=== PATIENT | male | born 1985 | race Caucasian/White ===

== ENCOUNTER 2018-10-13 06:14 | Emergency (ER) | payer SELFPAY ==
[2018-10-13 06:16] VITALS: BP 147/89; PULSE 56; RESP 18; TEMP 36.5; O2SAT 99
--- NOTE | 2018-10-13 06:30 | ED.GENADUL_ITS ---
Discharge Plan Disposition Patient Disposition: HOME Condition: Good Discharge Details Chief Complaint: EyeProblem Clinical Impression: Allergic conjunctivitis Primary Care Provider: None,None ED Provider: Ant Allen Meds and New Rx's Prescriptions: New olopatadine [Pataday] 0.2 % drops 1 drp OP DAILY Qty: 2.5 RF: 0 Discharge Instructions Instructions: Conjunctivitis (ED) Additional Instructions: This does not appear to be bacterial pinkeye. This is more likely related to allergic conjunctivitis. Use the eyedrops daily as directed. Follow-up with [facility] next week if not better. Return to ED for eye pain, change in vision, fever, other concerns. Referrals: [facility] [Outside] Medical Decision Making Patient actually has bilateral conjunctival injection. There is no discharge present. Conjunctival sac is injected but clear otherwise. There is no significant chemosis, eyelid swelling, periorbital swelling. Cornea grossly appears normal. I do not think this is bacterial conjunctivitis as there is no discolored discharge present. More likely allergic conjunctivitis given no URI type symptoms otherwise. Will start Pataday eyedrops and refer to [facility] for follow-up next week if not better. Return to ED for eye pain, change in vision, fever. HPI General Mode of arrival: ambulatory . Date/Time Provider Initiated Documentation: 10/13/18 06:20 . Limitations to Documentation: no limitations . Information obtained by: patient . HPI Narrative: Patient presents to ED for evaluation of right eye discomfort and redness. He denies actual pain. He denies change in vision. He has no foreign body sensation. Simply has some irritation and redness that he attributes to just the right eye. He has no other allergy or cold symptoms. Related Data Home Medications Medication Instructions Recorded Confirmed olopatadine [Pataday] 1 drp OP DAILY #2.5 ml 10/13/18 Previous Rx's Medication Instructions Recorded olopatadine [Pataday] 1 drp OP DAILY #2.5 ml 10/13/18 Allergies Allergy/AdvReac Type Severity Reaction Status Date / Time No Known Allergies Allergy Unverified 10/13/18 06:19 General Stated Complaint: EyeProblem TANNER: 4 Review of Systems Constitutional Denies fever(s) Eyes Denies blurry vision, Denies change in vision, Denies eye discharge, Reports irritation, Reports itchy eyes, Denies eye pain and Denies photophobia ENT Denies nasal congestion, Denies nasal discharge, Denies post nasal drip and Denies sore throat Allergic/Immunologic Reports itchy eyes [facility] Social History Smoking/Tobacco Use Status: Never Drug use: Occasionally Do you feel safe at home: Yes Do you feel safe in your relationship?: Yes Exam Const General: cooperative, comfortable and no acute distress Orientation: alert and oriented x3 HENMT Head: normal to inspection, normocephalic and atraumatic Ears: external ears normal General nose exam: external nose normal Face and sinus: normal facial exam Eyes Periorbital: periorbital findings normal Eyelids: eyelids normal Conjunctivae: conjunctival abnormality bilaterally conjunctival injection; without chemosis and without discharge Sclera: sclerae normal Cornea: corneas normal Pupils: PERRL EOM: EOM intact bilaterally Course Vital Signs Temperature 97.7 F 10/13/18 06:16 Pulse 56 L 10/13/18 06:16 Respiratory Rate 18 10/13/18 06:16 Blood Pressure 147/89 H 10/13/18 06:16 Pulse Oximetry 99 10/13/18 06:16 Temperature 97.7 F 10/13/18 06:16 Temperature Source Temporal Artery Scan 10/13/18 06:16 Pulse 56 L 10/13/18 06:16 Respiratory Rate 18 10/13/18 06:16 Respiratory Effort 10/13/18 06:16 Blood Pressure 147/89 H 10/13/18 06:16 Blood Pressure Position Sitting 10/13/18 06:16 Pulse Oximetry 99 10/13/18 06:16 Oxygen Delivery Method Room Air 10/13/18 06:16 Oxygen Flow Rate 0 10/13/18 06:16 Pain Level 0 10/13/18 06:16
== END 2018-10-13 06:38 | disposition home or self-care (01) ==
LOC: ER 06:37
PROVIDERS: Emergency Provider Emergency Medicine
DX: H10.89 Other conjunctivitis (principal)
CPT/HCPCS: 99283

== ENCOUNTER 2019-08-14 08:10 | Emergency (ER) | payer SELFPAY ==
[2019-08-14 08:17] VITALS: BP 142/71; PULSE 82; RESP 17; TEMP 36.9; O2SAT 98
--- NOTE | 2019-08-14 08:27 | W.ED.GENAD ---
Discharge Plan Disposition Patient Disposition: HOME Condition: Stable Discharge Details Chief Complaint: Sorethroat Clinical Impression: Pharyngitis Primary Care Provider: None,None ED Provider: Saud Joseph Home Meds and New Rx's Prescriptions: No Action No Known Home Meds RF: 0 Discharge Instructions Instructions: Pharyngitis (ED) Additional Instructions: Please drink plenty of fluid and allow for plenty of rest. Please take acetaminophen (tylenol) - 650mg every 6 hours by mouth as needed for pain. Please contact your primary care physician to arrange follow-up. Return to the ER for any worsening or new concerning symptoms. Stand Alone Forms: POSITIVE COVID-19/TO BE TESTED, Work Release Medical Decision Making 34-year-old male here with sore throat since yesterday and fever today. Concern for pharyngitis. Rapid strep test negative. Patient is not septic appearing. Consider COVID-19 19 as unclear local epidemiologic spread, patient currently working at [employer], will plan for COVID-19 screening. A medical screening exam was performed. Patient clinically stable. Order for outpatient COVID-19 test was ordered. Usual and customary discharge instructions were provided. Patient was encouraged to drink plenty fluid and allow for plenty of rest. HPI General Mode of arrival: ambulatory. Date/Time Provider Initiated Documentation: 08/14/19 08:27. Limitations to Documentation: no limitations. Information obtained by: patient. HPI Narrative: 34-year-old male presents with chief complaint of sore throat, moderate to severe, started yesterday, no modifiers, associated fever today. No cough or shortness of breath. No travel. No known sick contacts. Patient does work at [employer]. Related Data Home Medications Medication Instructions Recorded Confirmed Unknown [No Known Home Meds] 08/14/19 08/14/19 Allergies Allergy/AdvReac Type Severity Reaction Status Date / Time No Known Allergies Allergy Unverified 10/13/18 06:19 General Stated Complaint: Sorethroat TANNER: 4 Review of Systems Constitutional Constitutional: Reports fever(s) ENT Ears, Nose, Mouth, and Throat: Reports as per HPI Respiratory Respiratory: Reports as per HPI Gastrointestinal Gastrointestinal: Denies nausea and Denies vomiting PFSH Social History Smoking/Tobacco Use Status: Current every day Alcohol Intake: never Drug use: Daily Substance use type: crack/cocaine Do you feel safe at home: Yes Do you feel safe in your relationship?: Yes Exam Const General: cooperative and no acute distress HENMT Mouth: moist mucous membranes Eyes Conjunctivae: normal conjunctivae Sclera: normal sclerae Neck Neck: trachea midline and supple Lymphatic: lymphadenopathy (Mild anterior cervical bilateral) Resp Auscultation: clear to auscultation bilaterally, no rales, no rhonchi and no wheezes Cardio Jugular venous pressure: no JVD Rate: regular rate and not tachycardic Rhythm: regular rhythm Skin General skin exam: no rashes or lesions noted Neuro General: patient alert, patient awake and tone normal Course Vital Signs Vital signs: Vital Signs Temperature 36.9 C 08/14/19 08:17 Pulse 82 08/14/19 08:17 Respiratory Rate 17 08/14/19 08:17 Blood Pressure 142/71 H 08/14/19 08:17 Pulse Oximetry 98 08/14/19 08:17 Temperature 36.9 C 08/14/19 08:17 Temperature Source Tympanic 08/14/19 08:17 Pulse 82 08/14/19 08:17 Respiratory Rate 17 08/14/19 08:17 Respiratory Effort 08/14/19 08:20 Blood Pressure 142/71 H 08/14/19 08:17 Blood Pressure Position Supine 08/14/19 08:17 Pulse Oximetry 98 08/14/19 08:17 Oxygen Delivery Method Room Air 08/14/19 08:17 Oxygen Flow Rate 0 08/14/19 08:17 Pain Level 0 08/14/19 08:17
== END 2019-08-14 08:45 | disposition home or self-care (01) ==
PROVIDERS: Emergency Provider Student in an Organized Health Care Education/Training Program
DX: J02.9 Acute pharyngitis, unspecified (principal); R50.9 Fever, unspecified
CPT/HCPCS: 87880; 99282

== ENCOUNTER 2019-08-20 20:01 | Emergency (ER) | payer SELFPAY ==
[2019-08-20 20:14] VITALS: BP 134/83; PULSE 79; RESP 14; TEMP 37.1; O2SAT 97
--- NOTE | 2019-08-20 20:15 | ED.GENADUL_ITS ---
Discharge Plan Disposition Patient Disposition: HOME Condition: Stable Discharge Details Chief Complaint: Recheck Clinical Impression: Encounter for medical screening examination Primary Care Provider: None,None ED Provider: Yury Frost Home Meds and New Rx's Prescriptions: No Action No Known Home Meds RF: 0 Discharge Instructions Additional Instructions: See enclosed. You will have coronavirus screening performed. Stand Alone Forms: PENDING COVID-19 TESTING, POSITIVE COVID-19/TO BE TESTED, Work Release Medical Decision Making 34-year-old male seen on August 13 for pharyngitis which is since resolved. He did not have any further testing at that time. He was sent home with a workout that noted to COVID 19 testing pending. It was not performed. He is otherwise well. I do feel it is reasonable for him to return to work so long as he has no fever and with precaution of facemask if within close proximity to coworkers. Out of caution, we will obtain an outpatient coronavirus screen tomorrow. Stable for discharge. HPI General Mode of arrival: ambulatory . Date/Time Provider Initiated Documentation: 08/20/19 20:08 . Limitations to Documentation: no limitations . Information obtained by: patient . History of Present Illness 34 year old M presents to the emergency department with the chief complaint of Return to work, no complaint otherwise, status post sore throat, Quality is described as dull and constant, and is localized to the face and mouth. Patient reports no radiation. Patient started experiencing this day(s) and it has been now resolved. No relieving factors improve symptom(s), No exacerbating factors reported . Patient did receive the following treatments prior to arrival, none Related Data Home Medications Medication Instructions Recorded Confirmed Unknown [No Known Home Meds] 08/14/19 08/20/19 Allergies Allergy/AdvReac Type Severity Reaction Status Date / Time No Known Allergies Allergy Unverified 08/20/19 20:19 General TANNER: 4 Review of Systems Narrative: No fever, travel. 4 systems reviewed and otherwise negative, no sore throat PFSH Social History Smoking/Tobacco Use Status: Current every day Alcohol Intake: never Drug use: Daily Substance use type: crack/cocaine Do you feel safe at home: Yes Do you feel safe in your relationship?: Yes Exam Narrative Exam Narrative: GEN: awake, alert, oriented 3. Pleasant, well groomed, interactive. HEAD: Normocephalic, atraumatic ENT: Mucous membranes moist, oropharynx unremarkable, External ear exam unremarkable EYES: PERRL, EOMI NECK: Full ROM, no YAYA, no menigismus CHEST/RESP: Nontender, clear to auscultation bilateral, no wheeze/rhonchi/rales CARDIOVASCULAR: RRR, no murmur, rub brenda. 2+ Rad pulse bilateral EXT: Full ROM, no edema, no rash Neuro: Grossly normal neurologic exam, conversant, interactive. Psych: Speech fluent, thoughts congruent, affect normal
--- NOTE | 2019-08-21 12:00 | CMACTNOTE_ITS ---
- If Service Date Differs Date of service: 08/21/19 Time of Service: 12:00 Care Management Activity Note At the request of ED provider, STACIE coordinates a referral to [facility], tele doc, to assist patient in establishing care with a primary care physician. STACIE also outreaches to Aden by telephone to inquire about health insurance, as he is listed in self-pay status. Aden confirms he is uninsured at this time, so STACIE also coordinates a referral to [facility] ons to enlist their assistance in applying for health insurance.
== END 2019-08-20 20:30 | disposition home or self-care (01) ==
PROVIDERS: Emergency Provider Emergency Medicine
DX: Z71.1 Person with feared health complaint in whom no diagnosis is made (principal); Z02.89 Encounter for other administrative examinations
CPT/HCPCS: 99281

== ENCOUNTER 2019-08-21 09:54 | Outpatient (CLI) | payer SELFPAY ==
[2019-08-23 08:26] LABS: COVID-19 RT-PCR Result Negative
== END 2019-08-21 10:14 ==
PROVIDERS: Visit Provider Student in an Organized Health Care Education/Training Program
DX: Z11.59 Encounter for screening for other viral diseases (principal)
CPT/HCPCS: U0003

== ENCOUNTER 2019-09-03 21:54 | Emergency (ER) | payer MEDICAID, SELFPAY ==
[2019-09-03 22:01] VITALS: BP 130/79; PULSE 61; RESP 16; TEMP 36.6; O2SAT 100
--- NOTE | 2019-09-03 22:09 | W.ED.GENAD ---
Discharge Plan Disposition Patient Disposition: HOME Condition: Stable Discharge Details Chief Complaint: PsychEval Clinical Impression: Substance abuse, Depression Primary Care Provider: None,None ED Provider: Elton Choe Home Meds and New Rx's Prescriptions: No Action No Known Home Meds RF: 0 Discharge Instructions Instructions: Depression (ED), Polysubstance Abuse (ED) Additional Instructions: Please follow-up with [facility] and soccer coach services. Please contact your primary care physician to arrange follow-up. Return to the ER for any worsening or new concerning symptoms. Referrals: [facility] [Provider Group] [facility] [Outside] Discharge Data Discharge Date/Time-TO BE ENTERED AT DEPARTURE: 09/03/19 23:51 Medical Decision Making <ASHU Tapia - Last Filed: 09/04/19 16:08> 34-year-old gentleman presents to the ER today for a medical screening examination. He has not gone to work for the past couple of days, slept in his car, and was reported as a missing person. He was found today, admits to cocaine use on Tuesday, heroin use yesterday. He denies any suicidal or homicidal ideations. His family recently found out about his drug habits and this is strained his relationships. He reports that he is embarrassed, and at times just does not want to deal with anyone. He reports feeling safe. Patient reports that he does not have any insurance so going to a formal detox would be difficult but he is open to outpatient resources. Patient is awake, alert, oriented. He has no acute medical concerns or complaints. He does not appear to be under the influence of any substances. My initial presentation does not lead me to believe that he will require inpatient hospitalization unless additional collateral information is brought to my attention. Given this I have medically cleared the patient and have reached out to both the [facility] hospice consultant staff and a soccer coach. I spoke with on-call [facility] and they plan on having a zoom evaluation. Awaiting soccer coach call Medical Records Medical records reviewed: Yes I reviewed the patient's medical records. <Saud Joseph MD - Last Filed: 09/04/19 00:03> Care signed out by blake Choe. Plan to disposition patient after discussion with [facility] mental health. Patient was seen by mental health crisis screener and will arrange for outpatient services. Multiple calls were made to soccer coach service who was unresponsive. I will request the care management assist with arranging outpatient follow-up with [facility] in addition to [facility] human services. Usual and customary discharge instructions were provided. HPI <ASHU Tapia - Last Filed: 09/04/19 16:08> General Mode of arrival: ambulatory. Date/Time Provider Initiated Documentation: 09/03/19 21:55. Limitations to Documentation: no limitations. Information obtained by: patient. HPI Narrative: This is a 34-year-old gentleman presents to the ER for a medical screening examination. He reports that for the last 2 days he did not go to work, has not talked to friends or family, even slept in his car. He reports that he did not want to speak with anyone and did not want to be bothered. A missing person report was filed, he was found this evening. He reports that he does not feel suicidal or homicidal. He simply did not want to bother with people. He admits to using cocaine fairly regularly, has not used since Tuesday. He smoked heroin for the first time yesterday but denies any drugs or alcohol today. He feels safe, again denies any suicidal or homicidal ideations. He does not believe that he will will need inpatient hospitalization and can safely manage this as an outpatient. He tells me that he is open to speaking with someone regarding his drug habit but is hesitant for a formal inpatient detox. He denies recent illness or trauma. He reports that what brought this on over the past several days is that his family found out in the newspaper that he was in possession of cocaine and that this has been extremely difficult on him and his relationships. He currently has no medical complaints. Denies alcohol use Related Data Home Medications Medication Instructions Recorded Confirmed Unknown [No Known Home Meds] 08/14/19 09/03/19 Allergies Allergy/AdvReac Type Severity Reaction Status Date / Time No Known Allergies Allergy Unverified 09/03/19 22:06 General Stated Complaint: PsychEval TANNER: 2 Review of Systems <ASHU Tapia - Last Filed: 09/04/19 16:08> Constitutional Constitutional: Denies fatigue, Denies fever(s), Denies headache(s) and Denies weakness Eyes Eyes: Denies change in vision ENT Ears, Nose, Mouth, and Throat: Denies headache(s) Cardiovascular Cardiovascular: Denies chest pain and Denies dyspnea Respiratory Respiratory: Denies cough and Denies dyspnea Gastrointestinal Gastrointestinal: Denies abdominal pain, Denies nausea and Denies vomiting Musculoskeletal Musculoskeletal: Denies back pain, Denies numbness and Denies tingling Integumentary/Breasts Skin/Breast: Denies rash Neurologic Neurologic: Denies headache(s), Denies numbness, Denies tingling and Denies weakness Psychiatric Psychiatric: Reports depression, Reports anhedonia, Denies homicidal ideation and Denies suicidal ideation Endocrine Endocrine: Denies fatigue PFSH <ASHU Tapia - Last Filed: 09/04/19 16:08> Medical History Depression (Chronic) Social History Smoking/Tobacco Use Status: Never Alcohol Intake: never Drug use: Daily Substance use type: crack/cocaine and heroin Details: last cocaine use tuesday, heroin used yesterday - had to be narcanned Do you feel safe at home: Yes Do you feel safe in your relationship?: Yes Exam <ASHU Tapia - Last Filed: 09/04/19 16:08> Const General: cooperative, healthy appearing, comfortable, no acute distress and anxious Orientation: alert, awake and oriented x3 HENMT Head: normal to inspection, normocephalic and atraumatic Mouth: moist mucous membranes Throat: posterior oropharynx normal Eyes General: appearance normal, both eyes and all related structures Alignment and Position: alignment normal Periorbital: periorbital findings normal Eyelids: eyelids normal Conjunctivae: conjunctivae normal Sclera: sclerae normal Cornea: corneas normal Pupils: PERRL EOM: EOM intact bilaterally Direct ophthalmoscopy: normal light reflex Neck Neck: normal visual inspection, full ROM, trachea midline and supple Chest Chest: normal palpation of entire chest wall Resp Effort & Inspection: normal respiratory effort and able to speak in complete sentences Auscultation: clear to auscultation bilaterally Cardio Rate: regular rate Rhythm: regular rhythm GI Inspection: normal to inspection Palpation: soft and nontender Back/Spine/Pelvis Back: No back tenderness Skin General skin exam: no rashes or lesions noted Neuro General: patient alert, patient awake, patient oriented x3, moves all extremities and no focal motor deficits Cranial Nerves: CN's II-XI intact bilaterally Cognition: normal cognition Speech: speech normal Gait: normal gait Motor: muscle tone normal throughout Sensory Exam: no sensory deficits noted Extrem General: normal to inspection, full ROM and capillary refill normal Psych Appearance: grossly normal Mental Status: mental status grossly normal Speech and Movement: speech and movement normal Mood: anxious mood and dysthymic mood (Mild) Affect: normal affect Attitude: cooperative Thought Process: normal Thought Content: normal Insight: insight good Judgment: fair Course <ASHU Tapia - Last Filed: 09/04/19 16:08> Vital Signs Vital signs: Vital Signs Temperature 36.6 C 09/03/19 22:01 Pulse 61 09/03/19 22:01 Respiratory Rate 16 09/03/19 22:01 Blood Pressure 130/79 09/03/19 22:01 Pulse Oximetry 100 09/03/19 22:01 Temperature 36.6 C 09/03/19 22:01 Temperature Source Skin 09/03/19 22:01 Pulse 61 09/03/19 22:01 Respiratory Rate 16 09/03/19 22:01 Blood Pressure 130/79 09/03/19 22:01 Pulse Oximetry 100 09/03/19 22:01 Pain Level 0 09/03/19 22:01
--- NOTE | 2019-09-03 23:50 | NUR.NOTE ---
[facility] to [facility] due to not being able to contact them on 09/03/2019Nursing Note:
--- NOTE | 2019-09-04 09:40 | MHPN_ITS ---
Date of service: 09/03/19 Time of Service: 09:45 Mental Health Progress Note Progress Note Progress Note: Presenting Issue: Client arrived at the ED via [facility], seeking substance abuse treatment. Precipitating Factors [place] advised that Olga was a missing person for three days after he didn't show up to work. Olga advised that he didn't go to work because he had been using cocaine and heroin, but that he wants to stop. Client reports that he slept in his car while he was missing. Disposition * Behavior: Client is sitting upright on the hospital bed *Eye Contact: Client unable to provide eye contact, initially. When asked about this, client advised that he is ashamed that he missed work and is in the ER. Client then provided good eye contact. *Mood: Frustrated and depressed *Affect: Blunted *Appetite: Unknown *Sleep(trouble falling/staying asleep): unkown Plan(please elaborate and include that physician is consulted with plan and/or placement): Client will be discharged home. Intake packet with [facility] completed, client will be referred to SA services. Clinician's Name , Title, and Signature Robyn Strickland air conditioning engineer, [facility] Make sure that you are photocopying and submitting this to [facility] records Dept. to be scanned into chart.
--- NOTE | 2019-09-05 12:44 | NUR.NOTE ---
[facility] ice hockey coach Kimmy ray. [facility] will reach out to the patient. Nursing Note:
== END 2019-09-03 23:51 | disposition home or self-care (01) ==
PROVIDERS: Emergency Provider Physician Assistant
DX: F32.89 Other specified depressive episodes (principal); F19.10 Other psychoactive substance abuse, uncomplicated; Z63.8 Other specified problems related to primary support group
CPT/HCPCS: 99283

== ENCOUNTER 2021-08-28 00:41 | Outpatient (CLI) | payer MEDICAID, SELFPAY ==
--- NOTE | 2021-08-28 08:15 | DI.RAD_ITS ---
Exam(s) XR HIP RT COMPLETE AP PELVIS EXAM: XR HIP RT COMPLETE AP PELVIS INDICATION: Continued pain despite PT,oa,m19.90. COMPARISON: No exams were available for comparison TECHNIQUE: 2D digital imaging was performed. Three views. FINDINGS: Hip joint spaces are well maintained. There is mild bilateral acetabular spurring. There abnormal f lattening and lucency of the right superior femoral head, having the appearance of avascular necrosis . The left femoral head has a normal contour. The SI joints and pubic symphysis are unremarkable. 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 DATA REPOSITORY: RADIATION DOSE DELIVERED:
== END 2021-08-28 01:01 ==
PROVIDERS: PCP Nurse Practitioner Family; Visit Provider Nurse Practitioner Family
DX: M25.551 Pain in right hip (principal); M16.11 Unilateral primary osteoarthritis, right hip; M87.051 Idiopathic aseptic necrosis of right femur
CPT/HCPCS: 73502

== ENCOUNTER → 2021-09-17 01:58 | Outpatient (CLI) | payer MEDICAID, SELFPAY ==
--- NOTE | 2021-09-17 14:19 | DI.RAD_ITS ---
Exam(s) RF JOINT INJECTION FLUORO GUID EXAM: RF JOINT INJECTION FLUORO GUID CLINICAL HISTORY: R HIP INJ UNDER FLUORO, RT HIP PAIN, M25.551 TECHNIQUE: 2D and realtime digital imaging was performed. CONTRAST MATERIAL: Water soluble contrast was administered. COMPARISON: No exams were available for comparison FINDINGS: Fluoroscopy was provided for Dr. Rowan during the performance of a right hip injection. Please r efer to the procedure report for complete details. RADIATION DOSE DELIVERED: bobby Cardozo=0.41 mGy
[2021-09-17] MEDS: Bupivacaine 0.5% Pres-Free 30 ML VIAL 5 ML IJ (15:21)
[2021-09-17] MEDS: methylPREDNISolone ACETATE 80 MG/ML VIAL IM (15:23)
--- NOTE | 2021-09-17 17:35 | W.PROCNOTE ---
Date of service: 09/17/21 Time of Service: 14:20 Procedure Note Date of procedure: 09/17/21 Procedure: Right Hip Injection with Fluoroscopic Guidance Surgeon/Proceduralist/Physician: Corey Rowan Procedure Diagnosis: Right Hip Avascular Necrosis Procedure Indications: Aden has had persistent pain of the RIGHT hip and groin. Noninvasive measures have been tried. To serve as both diagnostic and therapeutic, an injection under fluoroscopy was recommended. I had discussed the risks of the procedure and the patient elected to proceed. Procedure Description: Aden was greeted in the flouroscopy room. The correct side was identified and the consent was reviewed with the patient and signed. The patient was then placed in the supine position on the fluoroscopy table. The RIGHT hip was then prepped with Chloraprep. The anterolateral injection starting point was identiifed by bony landmarks and fluoroscopy. The skin and soft tissue in the tract of the injection was anesthetized with 1% Lidocaine. A spinal needle was then inserted deep into the hip joint at the level of the lateral femoral neck under fluoroscopic guidance. Immediately there was a rothman of joint fluid. I was able to remove almost 15cc of normal appearing synovial fluid. With this confirmation of intra-articular placement, I did not use any Omnipaque. Then, the hip was injected with 6cc of 0.5% Bupivicaine and 80mg of Depo-Medrol. A bandaid was placed on the injection site. The patient tolerated the procedure well and noted improvement in pre-injection pain.
== END ==
PROVIDERS: PCP Nurse Practitioner Family; Visit Provider Student in an Organized Health Care Education/Training Program
DX: M25.551 Pain in right hip (principal); M87.051 Idiopathic aseptic necrosis of right femur
CPT/HCPCS: 20610; 77002; J1040

== ENCOUNTER 2021-10-13 18:00 | Emergency (ER) | payer MEDICAID, SELFPAY ==
[2021-10-13] VITALS (11 sets, daily range): BP systolic 135; BP diastolic 71; PULSE 87–102; RESP 14–21; TEMP 36.4; O2SAT 92–98
--- NOTE | 2021-10-13 17:45 | RT.EKG_ITS ---
APPROVED REPORT Exam: Resting ECG Reason for Exam: overdose Patient Location: E HR:93 bpm ECG Measurements Heart Rate 93 AXIS DC 144 P 24 QRSd 93 QRS 0 QT 360 T 38 QTc 447 Conclusion Sinus rhythm...normal P axis, V-rate 60- 99 ST elev, probable normal early repol pattern...ST elevation, age<55. Sinus. Benign early repolarization. No STEMI. I have reviewed and interpreted ECG and agree with software generated interpretation.
--- NOTE | 2021-10-13 18:15 | DI.RAD_ITS ---
Exam(s) XR CHEST 2V PA LATERAL EXAM: XR CHEST 2V PA LATERAL CLINICAL HISTORY: OD. TECHNIQUE: 2D digital imaging was performed. COMPARISON: No exams were available for comparison FINDINGS: 2 views: Heart size is normal. The mediastinum is not widened. Lungs are clear. No infiltrates nor pleural effusions. IMPRESSION: No acute pulmonary findings. DATA REPOSITORY: RADIATION DOSE DELIVERED:
--- NOTE | 2021-10-13 18:36 | W.ED.GENAD ---
Discharge Plan Disposition Patient Disposition: HOME Condition: Improving Discharge Details Chief Complaint: OD/Poison Clinical Impression: Accidental drug overdose Primary Care Provider: Bar Garza ED Provider: Elton Choe Home Meds and New Rx's Prescriptions: No Action No Known Home Meds Discharge Instructions Instructions: Adult Overdose (ED) Additional Instructions: At this time you been observed in the ER for nearly 4 hours, laboratory values do not reveal any obvious emergent process and he reports feeling asymptomatic. I strongly recommend that you stop using illicit drugs, please follow the instructions given to you by the assistant boys track coach. Please contact your primary care provider tomorrow to discuss your ER visit and need for outpatient reevaluation. Please watch for new or worsening symptoms and return to the ER for any concerns Medical Decision Making This is a 36-year-old male presenting to the ER for accidental drug overdose, bystanders gave Narcan x2. Patient admits to smoking crack with fentanyl and special K. He states when he first woke up he felt like his heart was racing but now only complains of nausea and vomiting. He denies any SI or HI. Plan is to obtain medical work-up, give IV fluid, Zofran, and he will talk with the assistant boys track coach. Patient spoke with the assistant boys track coach Initial laboratory values and EKG are unremarkable for obvious emergent process. Patient reports feeling improvement with the Zofran and IV fluid and is at baseline. Given he was given Narcan, reported a chest sensation, he is agreeable to observation in the ER for both his Narcan and a delta troponin Upon reevaluation patient reports that he is asymptomatic and feeling baseline. He will consider outpatient detox but is unsure given some current circumstances. Delta troponin is 52 which is below our cutoff of 60. He denies any chest pain whatsoever. Patient reports that he feels well and is comfortable discharge at this time. He has been observed in the ER for nearly 3 hours and 45 minutes. Standard discharge and return precautions were provided. Patient understands, is agreeable to this plan, and has no additional questions or concerns upon discharge. This documentation was generated using [employer] system, please disregard any oddities of phrase or misspellings. Medical Records Medical records reviewed: Yes I reviewed the patient's medical records. Imaging Data Radiologic Study: Attestation: I personally reviewed and interpreted this imaging study as follows: Imaging: X-Ray Radiologist's impression: PROCEDURE INFORMATION: Exam: XR Chest Exam date and time: 10/13/2021 7:25 PM Age: 36 years old Clinical indication: Other: Od TECHNIQUE: Imaging protocol: XR of the chest. Views: 2 views. COMPARISON: No relevant prior studies available. FINDINGS: Lungs: The lungs are clear. There is no pulmonary vascular congestion. Pleural spaces: There are no pleural effusions present. There is no evidence of pneumothorax. Heart/Mediastinum: The cardiomediastinal silhouette is within normal limits. Diaphragm: There is mild anterior eventration of the right hemidiaphragm. Bones/joints: Unremarkable. IMPRESSION: No active cardiopulmonary disease identified. Lab Data Lab results reviewed: Yes I reviewed the patient's lab results. Labs: Laboratory Tests Range/Units 10/13/21 10/13/21 10/13/21 18:32 18:32 18:32 WBC (4.4-10.8) 10^3/uL 7.65 RBC (4.36-5.78) 10^6/uL 4.91 Hgb (13.5-17.5) g/dL 14.9 Hct (40.0-50.0) % 43.4 MCV (80-95) fL 88 MCH (27.0-33.0) pg 30.3 MCHC (32.0-36.0) % 34.3 RDW (11.8-14.1) % 14.3 H Plt Count (130-400) 10^3/uL 266 MPV (8.0-11.0) fL 10.6 Immature Gran % 0.3 Neutrophils % 85.6 Lymphocytes % 7.3 Monocytes % 6.5 Eosinophils % 0.0 Basophils % 0.3 Nucleated RBC % (0.0-0.3) % 0.0 Absolute Neutrophils (1.2-6.7) 10^3/uL 6.55 Absolute Lymphocytes (1.2-3.4) 10^3/uL 0.56 L Absolute Monocytes (0.1-0.8) 10^3/uL 0.50 Absolute Eosinophils (0.0-0.7) 10^3/uL 0.00 Absolute Basophils (0.0-0.2) 10^3/uL 0.02 Sodium (136-145) mmol/L 139 Potassium (3.5-5.1) mmol/L 3.5 Chloride (98-107) mmol/L 102 Carbon Dioxide (21.0-32.0) mmol/L 25.8 Anion Gap (3-11) mmol/L 11.2 H BUN (7-18) mg/dL 18 Creatinine (0.70-1.30) mg/dL 1.2 Estimated GFR/1.73 m2 (mL/min/1.73m2) >= 60.00 Glucose (74-106) mg/dL 176 H Calcium (8.5-10.1) mg/dL 9.3 Magnesium (1.8-2.4) mg/dL 2.1 Total Bilirubin (0.2-1.0) mg/dL 0.6 AST (15-37) U/L 16 ALT (16-63) U/L 20 Alkaline Phosphatase (46-116) U/L 94 Troponin I (<or=60) ng/L < 50 Total Protein (6.4-8.2) g/dL 7.6 Albumin (3.4-5.0) g/dL 4.2 TSH (0.36-3.74) uIU/mL Urine Color (Yellow) Urine Clarity (Clear) Urine pH (5-8) Ur Specific [place] (1.005-1.025) Urine Protein (Negative) mg/dL Urine Ketones (Negative) mg/dL Urine Blood (Negative) Urine Nitrite (Negative) Urine Bilirubin (Negative) Urine Urobilinogen (Up TO 0.2) EU/dL Ur Leukocyte Esterase (Negative) Urine RBC (0-2) HPF Urine WBC (0-5) HPF Ur Epithelial Cells (Negative) HPF Urine Crystals (Negative) HPF Urine Bacteria (Negative) HPF Urine Casts (Negative) LPF Urine Mucus (Negative) Ur Culture Indicated? Urine Glucose (Negative) mg/dL Salicylates (<2.8) mg/dL < 2.8 Urine Opiates Screen (Negative) Urine Methadone Screen (Negative) Acetaminophen (10-30) ug/mL < 2 Ur Barbiturates Screen (Negative) Ur Tricyclics Screen (Negative) Ur Amphetamines Screen (Negative) U Benzodiazepines Scrn (Negative) Urine Cocaine Screen (Negative) Ur THC Screen (Negative) Ethyl Alcohol (<10) mg/dL < 3.0 Range/Units 10/13/21 10/13/21 10/13/21 18:32 20:00 20:00 WBC (4.4-10.8) 10^3/uL RBC (4.36-5.78) 10^6/uL Hgb (13.5-17.5) g/dL Hct (40.0-50.0) % MCV (80-95) fL MCH (27.0-33.0) pg MCHC (32.0-36.0) % RDW (11.8-14.1) % Plt Count (130-400) 10^3/uL MPV (8.0-11.0) fL Immature Gran % Neutrophils % Lymphocytes % Monocytes % Eosinophils % Basophils % Nucleated RBC % (0.0-0.3) % Absolute Neutrophils (1.2-6.7) 10^3/uL Absolute Lymphocytes (1.2-3.4) 10^3/uL Absolute Monocytes (0.1-0.8) 10^3/uL Absolute Eosinophils (0.0-0.7) 10^3/uL Absolute Basophils (0.0-0.2) 10^3/uL Sodium (136-145) mmol/L Potassium (3.5-5.1) mmol/L Chloride (98-107) mmol/L Carbon Dioxide (21.0-32.0) mmol/L Anion Gap (3-11) mmol/L BUN (7-18) mg/dL Creatinine (0.70-1.30) mg/dL Estimated GFR/1.73 m2 (mL/min/1.73m2) Glucose (74-106) mg/dL Calcium (8.5-10.1) mg/dL Magnesium (1.8-2.4) mg/dL Total Bilirubin (0.2-1.0) mg/dL AST (15-37) U/L ALT (16-63) U/L Alkaline Phosphatase (46-116) U/L Troponin I (<or=60) ng/L Total Protein (6.4-8.2) g/dL Albumin (3.4-5.0) g/dL TSH (0.36-3.74) uIU/mL 1.74 Urine Color (Yellow) Yellow Urine Clarity (Clear) Clear Urine pH (5-8) 5.5 Ur Specific [place] (1.005-1.025) >= 1.030 H Urine Protein (Negative) mg/dL 100 H Urine Ketones (Negative) mg/dL Negative Urine Blood (Negative) Small H Urine Nitrite (Negative) Negative Urine Bilirubin (Negative) Negative Urine Urobilinogen (Up TO 0.2) EU/dL 0.2 Ur Leukocyte Esterase (Negative) Negative Urine RBC (0-2) HPF 5-10 H Urine WBC (0-5) HPF 0-2 Ur Epithelial Cells (Negative) HPF Negative Urine Crystals (Negative) HPF Negative Urine Bacteria (Negative) HPF Negative Urine Casts (Negative) LPF 0-2 Coarse Granular Urine Mucus (Negative) Heavy Ur Culture Indicated? No Urine Glucose (Negative) mg/dL Negative Salicylates (<2.8) mg/dL Urine Opiates Screen (Negative) Negative Urine Methadone Screen (Negative) Negative Acetaminophen (10-30) ug/mL Ur Barbiturates Screen (Negative) Negative Ur Tricyclics Screen (Negative) Negative Ur Amphetamines Screen (Negative) Negative U Benzodiazepines Scrn (Negative) Negative Urine Cocaine Screen (Negative) Positive A Ur THC Screen (Negative) Positive A Ethyl Alcohol (<10) mg/dL Range/Units 10/13/21 21:11 WBC (4.4-10.8) 10^3/uL RBC (4.36-5.78) 10^6/uL Hgb (13.5-17.5) g/dL Hct (40.0-50.0) % MCV (80-95) fL MCH (27.0-33.0) pg MCHC (32.0-36.0) % RDW (11.8-14.1) % Plt Count (130-400) 10^3/uL MPV (8.0-11.0) fL Immature Gran % Neutrophils % Lymphocytes % Monocytes % Eosinophils % Basophils % Nucleated RBC % (0.0-0.3) % Absolute Neutrophils (1.2-6.7) 10^3/uL Absolute Lymphocytes (1.2-3.4) 10^3/uL Absolute Monocytes (0.1-0.8) 10^3/uL Absolute Eosinophils (0.0-0.7) 10^3/uL Absolute Basophils (0.0-0.2) 10^3/uL Sodium (136-145) mmol/L Potassium (3.5-5.1) mmol/L Chloride (98-107) mmol/L Carbon Dioxide (21.0-32.0) mmol/L Anion Gap (3-11) mmol/L BUN (7-18) mg/dL Creatinine (0.70-1.30) mg/dL Estimated GFR/1.73 m2 (mL/min/1.73m2) Glucose (74-106) mg/dL Calcium (8.5-10.1) mg/dL Magnesium (1.8-2.4) mg/dL Total Bilirubin (0.2-1.0) mg/dL AST (15-37) U/L ALT (16-63) U/L Alkaline Phosphatase (46-116) U/L Troponin I (<or=60) ng/L 52 Total Protein (6.4-8.2) g/dL Albumin (3.4-5.0) g/dL TSH (0.36-3.74) uIU/mL Urine Color (Yellow) Urine Clarity (Clear) Urine pH (5-8) Ur Specific [place] (1.005-1.025) Urine Protein (Negative) mg/dL Urine Ketones (Negative) mg/dL Urine Blood (Negative) Urine Nitrite (Negative) Urine Bilirubin (Negative) Urine Urobilinogen (Up TO 0.2) EU/dL Ur Leukocyte Esterase (Negative) Urine RBC (0-2) HPF Urine WBC (0-5) HPF Ur Epithelial Cells (Negative) HPF Urine Crystals (Negative) HPF Urine Bacteria (Negative) HPF Urine Casts (Negative) LPF Urine Mucus (Negative) Ur Culture Indicated? Urine Glucose (Negative) mg/dL Salicylates (<2.8) mg/dL Urine Opiates Screen (Negative) Urine Methadone Screen (Negative) Acetaminophen (10-30) ug/mL Ur Barbiturates Screen (Negative) Ur Tricyclics Screen (Negative) Ur Amphetamines Screen (Negative) U Benzodiazepines Scrn (Negative) Urine Cocaine Screen (Negative) Ur THC Screen (Negative) Ethyl Alcohol (<10) mg/dL ECG Data Attestation: I personally reviewed and interpreted this ECG (s) as follows: Interpretation: Please see official report by Dr. Damian. Sinus rhythm. ST elevation likely early repolarization. No STEMI. No previous EKG to compare HPI General Mode of arrival: EMS. Date/Time Provider Initiated Documentation: 10/13/21 18:01. Limitations to Documentation: no limitations. Information obtained by: patient and EMS. HPI Narrative: This is a 36-year-old gentleman, past medical history that includes polysubstance abuse, depression, avascular necrosis of the right hip, presenting to the ER for accidental overdose, became either near or completely unresponsive, bystanders called EMS and gave him Narcan x2. By the time EMS arrived patient was awake. Patient reports that his drug of choice typically smoking crack but today smoked his typical crack with fentanyl and special K. Patient reports that this was not an attempt to harm himself and was purely accidental. Patient states that when he first awoke and felt like his heart was going fast but currently states that that went away completely, denies any chest pain or shortness of breath. His only complaint at this time is nausea and vomiting. Denies recent illness or trauma. Denies any IV drug use. Denies fever, headache, abdominal pain, numbness, tingling, weakness. Patient states that he has had to be medicated with Narcan in the past. Patient is open to speaking with the assistant boys track coach at this time. Related Data Home Medications Medication Instructions Recorded Confirmed Unknown [No Known Home Meds] 07/31/21 10/13/21 Allergies Allergy/AdvReac Type Severity Reaction Status Date / Time No Known Allergies Allergy Verified 10/13/21 18:11 General Stated Complaint: OD/Poison TANNER: 2 Review of Systems Constitutional Constitutional: Denies fever(s), Denies headache(s) and Denies weakness Eyes Eyes: Denies change in vision ENT Ears, Nose, Mouth, and Throat: Denies headache(s) and Denies neck pain Cardiovascular Cardiovascular: Denies chest pain and Denies dyspnea Respiratory Respiratory: Denies cough and Denies dyspnea Gastrointestinal Gastrointestinal: Denies abdominal pain, Reports nausea and Reports vomiting Musculoskeletal Musculoskeletal: Denies back pain, Denies neck pain, Denies numbness and Denies tingling Integumentary/Breasts Skin/Breast: Denies rash Neurologic Neurologic: Denies headache(s), Denies numbness, Denies tingling and Denies weakness Psychiatric Psychiatric: Denies homicidal ideation and Denies suicidal ideation Hematologic/Lymphatic Hematologic/Lymphatic: Denies easy bleeding and Denies easy bruising PFSH All Active Problems (Updated 10/13/21 @ 21:50 by ASHU Tapia) Accidental drug overdose (Acute) Avascular necrosis of bone of right hip (Acute) Leg pain (Acute) 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 Brother No problems noted. Maternal Grandfather No problems noted. Paternal Grandfather Heart disease COPD (chronic obstructive pulmonary disease) Maternal Grandmother High cholesterol Paternal Grandmother Cancer Social History Smoking/Tobacco Use Status: Never Second Hand Exposure: No Smoking risk assessment performed?: Yes Alcohol Intake: never Drug use: Current Sobriety Substance use type: crack/cocaine and heroin Details: last cocaine use tuesday, heroin used yesterday - had to be narcanned Household members: family Do you need help understanding health information?: Rarely Pets and animals: No Sexually active: Yes Do you think of yourself as: straight/heterosexual Current gender identity: male What is your relationship status?: never How often do you talk on the phone with friends or family?: three or more times per week How often do you get together with friends or relatives?: three or more times per week Panel score (0-1 are the most socially isolated patients): 1 What type of physical activity do you participate in: walking Duration: 60-90 minutes/day Frequency: daily Do you feel safe at home: Yes Do you feel safe in your relationship?: Yes Exam Const General: cooperative, healthy appearing, comfortable, no acute distress and anxious Orientation: alert, awake and oriented x3 HENMT Head: normal to inspection, normocephalic and atraumatic Face and sinus: normal facial exam Mouth: moist mucous membranes Throat: posterior oropharynx normal Eyes General: appearance normal, both eyes and all related structures Conjunctivae: conjunctivae normal Neck Neck: normal visual inspection, full ROM, no meningeal signs, trachea midline, supple and nontender Resp Effort & Inspection: normal respiratory effort and able to speak in complete sentences Auscultation: clear to auscultation bilaterally Cardio Rate: regular rate Rhythm: regular rhythm GI Palpation: soft and nontender Back/Spine/Pelvis Back: No back tenderness Skin General skin exam: no rashes or lesions noted Neuro General: patient alert, patient awake, moves all extremities and no focal motor deficits Cognition: normal cognition Speech: speech normal Motor: muscle tone normal throughout Sensory Exam: no sensory deficits noted Extrem General: normal to inspection, full ROM and capillary refill normal Psych Appearance: grossly normal Mental Status: mental status grossly normal Course Vital Signs Vital signs: Vital Signs Temperature 36.4 C L 10/13/21 17:57 Pulse 102 H 10/13/21 17:57 Respiratory Rate 19 10/13/21 17:57 Blood Pressure 135/71 10/13/21 17:57 Pulse Oximetry 97 10/13/21 17:57 Temperature 36.4 C L 10/13/21 17:57 Temperature Source Tympanic 10/13/21 17:57 Pulse 102 H 10/13/21 17:57 Respiratory Rate 16 10/13/21 18:17 Respiratory Effort Non-Labored 10/13/21 18:17 Respiratory Depth Normal 10/13/21 18:17 Respiratory Pattern Normal 10/13/21 18:17 Blood Pressure 135/71 10/13/21 17:57 Blood Pressure Position Sitting 10/13/21 17:57 Pulse Oximetry 97 10/13/21 17:57 Oxygen Delivery Method Room Air 10/13/21 17:57 Oxygen Flow Rate 0 10/13/21 17:57 Pain Level 3 10/13/21 17:57
[2021-10-13] MEDS: Ondansetron 4 MG/2 ML VIAL (18:44)
[2021-10-13] MEDS: Normal Saline 1,000 ML 1000 ML IV (18:44)
[2021-10-13 19:00] LABS: Abs Immature Grans 0.02 10^3/uL (0.0-0.06); Absolute Basophil Count 0.02 10^3/uL (0.0-0.2); Absolute Lymphocyte Count 0.56 10^3/uL (1.2-3.4); Absolute Neutrophil Count 6.55 10^3/uL (1.2-6.7); Basophils % 0.3; HCT 43.4 % (40.0-50.0); HGB 14.9 g/dL (13.5-17.5); Immature Grans % 0.3; Lymphocytes % 7.3; MCH 30.3 pg (27.0-33.0); MCHC 34.3 % (32.0-36.0); MCV 88 fL (80-95); MPV 10.6 fL (8.0-11.0); Monocytes % 6.5; Neutrophils % 85.6; Platelet Count 266 10^3/uL (130-400); RBC 4.91 10^6/uL (4.36-5.78); RDW 14.3 % (11.8-14.1); RDW-SD 46.1 fL; WBC 7.65 10^3/uL (4.4-10.8)
[2021-10-13 19:24] LABS: Salicylate < 2.8 mg/dL (<2.8)
[2021-10-13 19:25] LABS: Acetaminophen < 2 ug/mL (10-30)
[2021-10-13 19:29] LABS: ALT 20 U/L (16-63); AST 16 U/L (15-37); Albumin 4.2 g/dL (3.4-5.0); Alkaline Phosphatase 94 U/L (46-116); Anion Gap 11.2 mmol/L (3-11); BUN 18 mg/dL (7-18); Bilirubin, Total 0.6 mg/dL (0.2-1.0); CO2 25.8 mmol/L (21.0-32.0); CREATININE 1.2 mg/dL (0.70-1.30); Calcium 9.3 mg/dL (8.5-10.1); Chloride 102 mmol/L (98-107); Glucose 176 mg/dL (74-106); Magnesium 2.1 mg/dL (1.8-2.4); Potassium 3.5 mmol/L (3.5-5.1); Sodium 139 mmol/L (136-145); Total Protein 7.6 g/dL (6.4-8.2); Troponin I < 50 ng/L (<or=60)
[2021-10-13 19:32] LABS: ETHANOL BLOOD < 3.0 mg/dL (<10)
[2021-10-13 19:37] LABS: TSH (W/Ref FT4) 1.74 uIU/mL (0.36-3.74)
--- NOTE | 2021-10-13 19:57 | DI.VRAD_ITS ---
PROCEDURE INFORMATION: Exam: XR Chest Exam date and time: 10/13/2021 7:25 PM Age: 36 years old Clinical indication: Other: Od TECHNIQUE: Imaging protocol: XR of the chest. Views: 2 views. COMPARISON: No relevant prior studies available. FINDINGS: Lungs: The lungs are clear. There is no pulmonary vascular congestion. Pleural spaces: There are no pleural effusions present. There is no evidence of pneumothorax. Heart/Mediastinum: The cardiomediastinal silhouette is within normal limits. Diaphragm: There is mild anterior eventration of the right hemidiaphragm. Bones/joints: Unremarkable. IMPRESSION: No active cardiopulmonary disease identified. Dictated and Authenticated by: Milton Perez MD. Ordering:AWA Conde MD
[2021-10-13 20:22] LABS: Bilirubin Negative (Negative); Blood Small (Negative); Clarity Clear (Clear); Glucose Negative (Negative); Ketones Negative (Negative); Leukocyte Esterase Negative (Negative); Nitrite Negative (Negative); Specific Gravity >= 1.030 (1.005-1.025); Urobilinogen 0.2 EU/dL (Up TO 0.2); pH 5.5 (5-8)
[2021-10-13 20:29] LABS: Bacteria Negative HPF (Negative); Crystals Negative HPF (Negative); Epithelial Cells Negative HPF (Negative); WBC 0-2 HPF (0-5)
[2021-10-13 20:30] LABS: C & S Indicated? No; Casts 0-2 Coarse Granular LPF (Negative); Mucus Heavy (Negative)
[2021-10-13 20:32] LABS: *AMPHETAMINES SCREEN URINE Negative (Negative); *BARBITURATES SCREEN URINE Negative (Negative); *BENZODIAZEPINES SCREEN URINE Negative (Negative); Cannabinoids THC Positive (Negative); Cocaine Screen,Urine Positive (Negative); METHADONE URINE SCREEN Negative (Negative); OPIATES URINE SCREEN Negative (Negative)
[2021-10-13 20:33] LABS: Tricyclic Antidepressants Negative (Negative)
[2021-10-13 21:40] LABS: Troponin I 52 ng/L (<or=60)
== END 2021-10-13 22:10 | disposition home or self-care (01) ==
PROVIDERS: Emergency Provider Physician Assistant; PCP Nurse Practitioner Family
DX: T40.411A Poisoning by fentanyl or fentanyl analogs, accidental (unintentional), initial encounter (principal); T41.291A Poisoning by other general anesthetics, accidental (unintentional), initial encounter; R00.2 Palpitations
CPT/HCPCS: 36415; 80053; 80307; 93005; 96361; 96374; 99284; 71046; 80320; 80329; 81003; 81015; 83735; 84443; 84484; 85025; 93010; J2405

== ENCOUNTER 2022-02-24 21:38 | Outpatient (REF) | payer MEDICAID, SELFPAY ==
[2022-02-26 16:03] LABS: Chlamydia Result Negative (Negative); GC Result Negative (Negative)
== END 2022-02-24 21:39 | disposition home or self-care (01) ==
LOC: LBN 21:38
PROVIDERS: PCP Nurse Practitioner Family; Visit Provider Family Medicine
DX: Z20.2 Contact with and (suspected) exposure to infections with a predominantly sexual mode of transmission (principal)
CPT/HCPCS: 87491; 87591

== ENCOUNTER 2022-05-28 01:01 | Outpatient (CLI) | payer MEDICAID, SELFPAY ==
[2022-05-28 12:31] LABS: Hemoglobin A1C 5.4 % (<5.7)
[2022-05-28 12:58] LABS: Calculated LDL 102 mg/dL (<100); Cholesterol 183 mg/dL (<200); HDL Cholesterol 74 mg/dL (40-60); Triglyceride 37 mg/dL (<150)
[2022-05-29 09:26] LABS: HIV-1/2 Ag & Ab Screen Negative (Negative)
== END 2022-05-28 01:02 | disposition home or self-care (01) ==
LOC: LOS 01:02
PROVIDERS: Family Medicine; PCP Nurse Practitioner Family; Visit Provider Nurse Practitioner Family
DX: E78.5 Hyperlipidemia, unspecified (principal); R73.9 Hyperglycemia, unspecified; Z11.4 Encounter for screening for human immunodeficiency virus [HIV]; Z00.00 Encounter for general adult medical examination without abnormal findings
CPT/HCPCS: 36415; 80061; 87389; 83036

== ENCOUNTER 2022-06-21 15:27 | Outpatient (CLI) | payer MEDICAID, SELFPAY ==
--- NOTE | 2022-06-21 15:15 | DI.RAD_ITS ---
Exam(s) XR HIP RT AP LAT ONLY EXAM: XR HIP RT AP LAT ONLY CLINICAL HISTORY: Rigt hip f/u. TECHNIQUE: 2D digital imaging was performed. Two views COMPARISON: CR XR HIP RT COMPLETE AP PELVIS from 08/28/2021 FINDINGS: There has been further collapse with further flattening of the superior aspect of the right femoral h ead. There is worsening of spurring at the lateral right hip joint. DATA REPOSITORY: RADIATION DOSE DELIVERED:
== END 2022-06-21 15:28 | disposition home or self-care (01) ==
LOC: DIORS 15:28
PROVIDERS: PCP Nurse Practitioner Family; Referring Provider Nurse Practitioner Family; Visit Provider Student in an Organized Health Care Education/Training Program
DX: M87.051 Idiopathic aseptic necrosis of right femur (principal)
CPT/HCPCS: 73502

== ENCOUNTER 2022-07-08 13:50 | Emergency (ER) | payer MEDICAID, SELFPAY ==
[2022-07-08 14:08] VITALS: PULSE 63; RESP 18; TEMP 36.6; O2SAT 98
[2022-07-08 14:11] VITALS: BP 140/93
--- NOTE | 2022-07-08 15:02 | ED.GENADUL_ITS ---
Discharge Plan Disposition Condition: Stable Discharge Details Chief Complaint: PsychEval Clinical Impression: Depression Primary Care Provider: Bar Garza ED Provider: Chris Vasquez Home Meds and New Rx's Prescriptions: No Action sertraline [Zoloft] 50 mg tablet 50 mg PO DAILY Medical Decision Making 37 yo male with hx of substance abuse and depression comes in with thoughts of self harm. He states he has chronic depression but the past few weeks has worsened over the past few weeks. He states he has been using crack and heroin, last used heroin a week ago and last used crack this morning, denies alcohol use. HAsn't attempted to harm himself. He is caox4, clear speech and clinically sober. Normal gait, no focal motor or sensation deficits. No findings on exam to suggest underlying medical or infectious etiology for his symptoms. Will obtain screening labs and consult mental health labs unremarkable, seen by mental health and will be voluntary for depression/si Differential Diagnosis Differential Diagnosis: depression, si, substance abuse Lab Data Lab results reviewed: Yes I reviewed the patient's lab results. HPI General Mode of arrival: ambulatory . Date/Time Provider Initiated Documentation: 07/08/22 14:50 . Limitations to Documentation: no limitations . Information obtained by: patient . History of Present Illness 37 year old M presents to the emergency department with the chief complaint of depression/si, described as moderate, Patient started experiencing this week(s) (3) and it has been constant. No relieving factors improve symptom(s), No exacerbating factors reported . Patient did receive the following treatments prior to arrival, none Related Data Home Medications Medication Instructions Recorded Confirmed sertraline 50 mg tablet (Zoloft) 50 mg PO DAILY 02/24/22 07/08/22 Allergies Allergy/AdvReac Type Severity Reaction Status Date / Time No Known Allergies Allergy Verified 07/08/22 14:12 General Stated Complaint: PsychEval TANNER: 2 Review of Systems All systems reviewed & are unremarkable except as noted in HPI and below Constitutional Constitutional: Denies chills, Denies fever(s) and Denies weakness Eyes Eyes: Denies loss of vision ENT Ears, Nose, Mouth, and Throat: Denies change in voice Cardiovascular Cardiovascular: Denies chest pain and Denies dyspnea Respiratory Respiratory: Denies cough and Denies dyspnea Gastrointestinal Gastrointestinal: Denies abdominal pain, Denies nausea and Denies vomiting Genitourinary Genitourinary: Denies dysuria Musculoskeletal Musculoskeletal: Denies joint swelling Integumentary/Breasts Skin/Breast: Denies rash Neurologic Neurologic: Denies loss of vision and Denies weakness PFSH All Active Problems (Updated 07/08/22 @ 18:22 by Chris Vasquez MD) Depression (Chronic) Avascular necrosis of bone of right hip (Acute) Leg pain (Acute) 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 Brother No problems noted. Maternal Grandfather No problems noted. Paternal Grandfather Heart disease COPD (chronic obstructive pulmonary disease) Maternal Grandmother High cholesterol Paternal Grandmother Cancer Social History Smoking/Tobacco Use Status: Current-Occasional Tobacco Type: cigarettes Second Hand Exposure: Yes Smoking risk assessment performed?: Yes Alcohol Intake: current Drug use: Daily Substance use type: marijuana, crack/cocaine and heroin Household members: family Do you need help understanding health information?: Rarely Pets and animals: No Sexually active: No Do you think of yourself as: straight/heterosexual Current gender identity: male What is your relationship status?: refused to answer How often do you talk on the phone with friends or family?: once per week How often do you get together with friends or relatives?: never How often do you attend scientologist or mormon services?: decline to answer Panel score (0-1 are the most socially isolated patients): 0 What type of physical activity do you participate in: walking Duration: 60-90 minutes/day Frequency: 1-2 times per week Seatbelt use: always Do you feel safe at home: Yes Do you feel safe in your relationship?: Yes Exam Const General: no acute distress Orientation: alert HENMT Head: normal to inspection Ears: external ears normal General nose exam: external nose normal Mouth: moist mucous membranes Eyes General: appearance normal, both eyes and all related structures Neck Neck: normal visual inspection Resp Effort & Inspection: normal respiratory effort and able to speak in complete sentences Cardio Rate: regular rate Skin General skin exam: no rashes or lesions noted Neuro General: patient alert and patient oriented x3 Cranial Nerves: PERRL Extrem General: normal to inspection Psych Attitude: cooperative Course Vital Signs Vital signs: Vital Signs Temperature 36.6 C 07/08/22 14:08 Pulse 63 07/08/22 14:08 Respiratory Rate 18 07/08/22 14:08 Pulse Oximetry 98 07/08/22 14:08 Temperature 36.6 C 07/08/22 14:08 Temperature Source Tympanic 07/08/22 14:08 Pulse 63 07/08/22 14:08 Respiratory Rate 18 07/08/22 14:08 Respiratory Effort Normal, Non-Labored 07/08/22 14:10 Blood Pressure 140/93 H 07/08/22 14:11 Pulse Oximetry 98 07/08/22 14:08 Oxygen Delivery Method Room Air 07/08/22 14:08 Oxygen Flow Rate 0 07/08/22 14:08
--- NOTE | 2022-07-08 15:15 | NUR.NOTE ---
Nursing Note: Pt presents to ED w/ c/o SI. Pt states he lost his mother as well as friend recently and has ongoing substance use of crack and heroin. Pt denies HI. Admits to plan of jumping off bridge to harm himself and states he had climbed up onto the railing of bridge yesterday, but didnt act on it. A&O. resp even and unlabored.
[2022-07-08 15:37] LABS: Abs Immature Grans 0.01 10^3/uL (0.0-0.06); Absolute Basophil Count 0.04 10^3/uL (0.0-0.2); Absolute Eosinophil Count 0.04 10^3/uL (0.0-0.7); Absolute Lymphocyte Count 1.03 10^3/uL (1.2-3.4); Absolute Monocyte Count 0.42 10^3/uL (0.1-0.8); Absolute Neutrophil Count 3.23 10^3/uL (1.2-6.7); Basophils % 0.8; Eosinophils % 0.8; HGB 14.3 g/dL (13.5-17.5); Immature Grans % 0.2; Lymphocytes % 21.6; MCH 30.6 pg (27.0-33.0); MCHC 33.3 % (32.0-36.0); MCV 92 fL (80-95); MPV 9.4 fL (8.0-11.0); Monocytes % 8.8; Neutrophils % 67.8; Platelet Count 216 10^3/uL (130-400); RBC 4.68 10^6/uL (4.36-5.78); RDW 14.2 % (11.8-14.1); RDW-SD 47.7 fL; WBC 4.77 10^3/uL (4.4-10.8)
[2022-07-08 15:57] LABS: Salicylate < 2.8 mg/dL (<2.8)
--- NOTE | 2022-07-08 15:57 | PDOC.CMSAFED ---
- If Service Date Differs Date of service: 07/08/22 Time of Service: 15:57 Care Management Safety Plan Status: Interim - Reason for Wait Reason for Wait: Assessment/Screening Chief Complaint: Aden is a 37 year old male with a history of depression and substance use. He presents in the ED today for worsening suicidal ideation over the past few weeks. He reports last use of heroin a week ago and crack cocaine this morning. Records indicate he was inpatient at [facility] in August of 2020. CM will respond to ED to assess patient after patient has been medically cleared and assessed by screener. If screener deems patient meets criteria for psychiatric stabilization CM will facilitate interdepartmental huddle with [facility] screener for safety planning considerations and meet with patient to review [facility] policy and safety plan, establish individual wishes for treatment and maintain patient rights. In the interim; please note safety plan below to guide patient care while awaiting further assessment in the ED. SAFETY PLAN: 1. Will remain on suicide precautions and in paper clothes. 2. Will remain in room under direct supervision of one-on-one staff at all times provided by CPSO, EMR IMPLEMENTATION SPECIALIST, CLAIMS ASSISTANT residency coordinator. 3. May have paper cups, plates, finger foods as well as a cardboard spoon with which to eat meals. 4. Follow [facility] Management of the Admitted Behavioral Health Patient policy. 5. Personal care: Comfort bath system only at this time. 6. Bathroom privileges: with escort in ED. Available in room without limitation on Med/Surg. 6. No personal belongings at this time; per RN discretion. 7. No visitors at this time. 8. Phone contact limited to legal/family contact via cordless hospital phone at this time. 9. Activities: Music tablet and other activities at RN discretion. Med/Surg: Television available at RN discretion. 10. Due to VOLUNTARY status, if patient wishes to leave [facility], staff will contact [facility] Crisis Screener ([phone]) and On-Call Supervisor Taping ([phone]) as soon as possible. In the event of elopement, notify [facility] Police ([phone]). If deemed appropriate for inpatient psychiatric care, safety plan will be established with patient, and care team, to adhere to patient goals, identify restrictions based on behavioral status, address nutrition, and determine allowed personal belongings, tools for hygiene and personal care. As well plan will determine level of activity including ambulation, level of supervision, visitors, and determine privileges based on level of acuity, behaviors and level of engagement by patient.
[2022-07-08 16:03] LABS: Acetaminophen < 2 ug/mL (10-30)
[2022-07-08 16:06] LABS: ALT 14 U/L (16-63); AST 13 U/L (15-37); Alkaline Phosphatase 92 U/L (46-116); Anion Gap 7.9 mmol/L (3-11); BUN 13 mg/dL (7-18); Bilirubin, Total 0.6 mg/dL (0.2-1.0); CO2 31.1 mmol/L (21.0-32.0); CREATININE 1.2 mg/dL (0.70-1.30); Calcium 9.5 mg/dL (8.5-10.1); Chloride 102 mmol/L (98-107); Estimated GFR 78.89 (mL/min/1.73m2); Glucose 90 mg/dL (74-106); Sodium 141 mmol/L (136-145); TSH (W/Ref FT4) 1.08 uIU/mL (0.36-3.74); Total Protein 7.6 g/dL (6.4-8.2)
[2022-07-08 18:05] LABS: ETHANOL BLOOD < 3.0 mg/dL (<10)
[2022-07-08 18:17] LABS: Bilirubin Small (Negative); Blood Small (Negative); Clarity Clear (Clear); Glucose Negative (Negative); Ketones Trace mg/dL (Negative); Leukocyte Esterase Negative (Negative); Nitrite Negative (Negative); Specific Gravity >= 1.030 (1.005-1.025)
[2022-07-08 18:23] LABS: Bacteria Few HPF (Negative); C & S Indicated? No; Casts Negative LPF (Negative); Crystals Negative HPF (Negative); Epithelial Cells Few HPF (Negative); Mucus Moderate (Negative); WBC Negative HPF (0-5)
[2022-07-08 18:27] LABS: *AMPHETAMINES SCREEN URINE Negative (Negative); *BARBITURATES SCREEN URINE Negative (Negative); *BENZODIAZEPINES SCREEN URINE Negative (Negative); Cannabinoids THC Negative (Negative); Cocaine Screen,Urine Positive (Negative); METHADONE URINE SCREEN Negative (Negative); OPIATES URINE SCREEN Negative (Negative)
[2022-07-08 18:32] LABS: Tricyclic Antidepressants Negative (Negative)
--- NOTE | 2022-07-08 22:05 | NUR.NOTE ---
Nursing Note: Report given to Samara DEMARCO
--- NOTE | 2022-07-08 23:44 | PDOC.MHCN_ITS ---
Date of service: 07/08/22 Time of Service: 17:10 PHQ-9 Over the last 2 weeks, how often have you been bothered by any of the following problems? 1. Little interest or pleasure in doing things: nearly every day 2. Feeling down, depressed, or hopeless: nearly every day 3. Trouble falling or staying asleep, or sleeping too much: more than half the days 4. Feeling tired or having little energy: more than half the days 5. Poor appetite or overeating: nearly every day 6. Feeling bad about yourself - or that you are a failure or have let yourself and your family down: nearly every day 7. Trouble concentrating on things, such as reading the newspaper or watching television: more than half the days 8. Moving or speaking so slowly that other people could have noticed? - Or the opposite - being so fidgety or restless that you have been moving around a lot more than usual: more than half the days 9. Thoughts that you would be better off or of hurting yourself in some way: nearly every day Total score: 23 If you checked off any problems, how difficult have these problems made it for you to do your work, take care of things at home, or get along with other people?: extremely difficult Source: Developed by Drs. Ant Pena, Kim Jeter, Carlos Capps and colleagues, with an educational sylvie from [employer]. Suicide Severity Rate CSSRS Have you wished you were or wished you could go to sleep and not wake up?: Yes Have you actually had any thoughts of killing yourself?: Yes CSSRS2 Have you been thinking about how you might do this?: Yes Have you had these thoughts and had some intention of acting on them?: Yes Have you started to work out or worked out the details of how to kill yourself? Do you intend to carry out this plan?: Yes CSSRS3 Have you ever done anything, started to do anything or prepared to do anything to end your life?: Yes CSSRS4 Was this within the past three months?: Yes Screening Score Total Score: 8 Screening: Positive Mental Health Emergency Note Release [facility] release signed:: Yes Reason for Visit Client is known to [facility] as per chart review was brought to [facility] ED last Spring on a MH warrant. When client was brought to [facility] ED he was hospitalized on a voluntary basis at [facility]. Client did not follow through with outpatient treatment when he was released from [facility]. Client presented to [facility] ED this afternoon with chief complaint of worsening depression/anxiety, increased suicidal ideations with intent and plan, and significant substance abuse. Client is seen at [facility] ED in person. In the last 2 weeks has the pt presented for ES prior to today?: No Client Information Client is: Adult Outpatient Well Housed: No,status: Homeless Non Suicidal Self Injury Current: No History: yes, Client has hx of NSSI Safety Risk/Harm to Self or Others Current Ideation to Harm Self or Others: Yes to self. (Client endorsing persisitent SI with intent 01/09 and plan to overdose on illicit drugs or jump [place] from the [address]. ) Intent: yes, has intent. Plan: yes,has a plan. Risk: Does risk to harm exist?: yes. Access to means: No. Risk: High Risk Duty to warn indicated: No Asssessment/Mental Status Appearance: Unremarkable Attitude: Cooperative Behavior: Unremarkable Speech: Soft Affect: Flat and Cogruent with mood Mood: Stressed, Depressed and Anxious Thought process: Unremarkable Hallucinations: No Delusions: No Attention: Unremarkable Perception: Not impaired Orientation: Fully orientated Memory: Intact Insight: Fair Judgement: Fair Neurovegetative Symptoms Sleep: Decrease Appetitie: Disordered Interests: Decrease Energy: Decrease Libido: Not applicable Substance Use: Drug Issues: Dependence (Crack cocaine) Do you use nicotine?: No Have you used substances in the last 7 days?: yes, Crack cocaine- unkown amount. Additional Issues: Assaultive/Threatening Behavior: No Medical Concerns: No Client engaged in active self harm w/weapon: No Threatening to run away: No Child reported abuse/neglect: No Voluntarily presenting for services: Yes Domestic violence is a concern: No Extreme Psychosis or extreme behavior is present: No Impression Client is a 37 y/o single caucasion male that is currently homeless and staying on friends couches. Client is currently unemployed per his report he has not worked in about 2 months since he DUI drugs charge. Client presents with symptoms most congruent with major depressive disorder, as evidenced by self- report, poor appetite and sleep, increased suicidal ideations, loss of interest and poor energy. Client reports to this fiction and nonfiction writer prose that last night he was standing on the [address] in [place], [place] with intent to jump off from the bridge and by suicide. Client is unable to identify to this fiction and nonfiction writer prose what stopped him from jumping. Client reports to this fiction and nonfiction writer prose that he is currently endorsing persistent SI with high intent and same plan to jump off from the [address] or intentionally overdose on illicit drugs to by suicide. Client is showing fair insight and judgment and recognizes at this time he needs a higher level of care. Client would benefit from inpatient treatment in a co-occuring bed to decrease suicidal ideations, address substance abuse, and learn coping skills that he can utilize. Client would also benefit from a step down substance abuse program after hospitalization such as [facility] or [facility], to which he is open to. Alternatives to hospitalization were discussed, however this fiction and nonfiction writer prose feels like at this time client needs a higher level of care. Plan/Disposition Recommended Disposition: Hospitalization No. Plan: Client will remain at [facility] ED on voluntary status pending admission to an inpatient facility. Should client want to leave [facility] should be notified and an EE would be pursued. Clients referrals will be faxed to [facility], [facility], [facility], and [facility]. Client will be re-assessed by [facility] daily until placement is secured or clients acuity level decreases and he is able to be safety planned back to the community. Person reported agreement to plan: Yes Facilities contacted if Applicable [facility] Not accepted, No bed available [facility] Not accepted, Only accepting in house referrals [facility] Not accepted, Only accepting in house referrals, [facility] Not accepted, No bed available Reports/communication Outcome discussed with: ED/Personnel (Verbal passover given to ED provider Dr. Vasquez) Final Disposition/Discharge Transportation Checklist completed and faxed: No
[2022-07-09] MEDS: Sertraline 50 MG TAB PO ×2 (01:00→21:49)
--- NOTE | 2022-07-09 09:54 | MHPN_ITS ---
Date of service: 07/09/22 Time of Service: 09:54 PHQ-9 Over the last 2 weeks, how often have you been bothered by any of the following problems? 1. Little interest or pleasure in doing things: nearly every day 2. Feeling down, depressed, or hopeless: nearly every day 3. Trouble falling or staying asleep, or sleeping too much: more than half the days 4. Feeling tired or having little energy: more than half the days 5. Poor appetite or overeating: nearly every day 6. Feeling bad about yourself - or that you are a failure or have let yourself and your family down: nearly every day 7. Trouble concentrating on things, such as reading the newspaper or watching television: more than half the days 8. Moving or speaking so slowly that other people could have noticed? - Or the opposite - being so fidgety or restless that you have been moving around a lot more than usual: more than half the days 9. Thoughts that you would be better off or of hurting yourself in some way: nearly every day Total score: 23 If you checked off any problems, how difficult have these problems made it for you to do your work, take care of things at home, or get along with other people?: extremely difficult Source: Developed by Drs. Ant Pena, Kim Jeter, Carlos Capps and colleagues, with an educational sylvie from [employer] Suicide Severity Rate CSSRS Have you wished you were or wished you could go to sleep and not wake up?: Yes Have you actually had any thoughts of killing yourself?: Yes CSSRS2 Have you been thinking about how you might do this?: Yes Have you had these thoughts and had some intention of acting on them?: Yes Have you started to work out or worked out the details of how to kill yourself? Do you intend to carry out this plan?: Yes CSSRS3 Have you ever done anything, started to do anything or prepared to do anything to end your life?: Yes CSSRS4 Was this within the past three months?: Yes Screening Score Total Score: 8 Screening: Positive Mental Health Emergency Note Release [facility] release signed:: Yes Reason for Visit Client is known to [facility] as per chart review was brought to [facility] ED last Spring on a MH warrant. When client was brought to [facility] ED he was hospitalized on a voluntary basis at [facility]. Client did not follow through with outpatient treatment when he was released from [facility]. Client presented to [facility] ED this afternoon with chief complaint of worsening depression/anxiety, increased suicidal ideations with intent and plan, and significant substance abuse. Client is seen at [facility] ED in person. In the last 2 weeks has the pt presented for ES prior to today?: Unknown Client Information Client is: Adult Outpatient Non Suicidal Self Injury Current: No History: No Safety Risk/Harm to Self or Others Current Ideation to Harm Self or Others: Yes to self. Intent: yes, has intent. Plan: yes,has a plan. History of suicide attempt: yes,history of suicide attempt reported. Details of previous suicide attempt: Client endorsed a history of over dose, suffocation, a couple days ago the client was sitting on the railings of the [place] [employer] [place] contemplating jumping. Risk: Does risk to harm exist?: yes. Access to means: Yes. Types of Means: Other. Counseling provided: Yes Risk: High Risk Duty to warn indicated: No Asssessment/Mental Status Appearance: Unremarkable Attitude: Cooperative and Friendly Behavior: Unremarkable Speech: Normal Affect: Flat Mood: Depressed Thought process: Goal directed Hallucinations: No Delusions: No Attention: Unremarkable Perception: Not impaired Orientation: Fully orientated Memory: Intact Insight: Good Judgement: Fair Neurovegetative Symptoms Sleep: Increase Appetitie: Decrease Interests: Decrease Energy: Decrease Libido: Not applicable Substance Use: Drug Issues: Dependence Do you use nicotine?: No Have you used substances in the last 7 days?: yes, Client reports that he uses Cocaine daily and on occasion uses heroin. When asked how much he uses he self reports that he uses about a gram of cocaine a week. Additional Issues: Assaultive/Threatening Behavior: No Medical Concerns: No Client engaged in active self harm w/weapon: No Threatening to run away: No Child reported abuse/neglect: No Voluntarily presenting for services: Yes Domestic violence is a concern: No Extreme Psychosis or extreme behavior is present: No Impression Client is a 37 year old, single, male who lives in [facility]. He is unemployed and has no natural supports per his report. Client presents laying in bed resting and reports that he got a decent amount of sleep last night for the first time in awhile. He is engaged and communicates his needs appropriately. He reported to ED staff that his substance abuse issues are pushing him to the point of acting on his SI. He has a reported history of attempts including an aborted one just a day or two ago when he was sitting on the railings of the [address] contemplating jumping. He self-reports his risk if he were to be discharged a 910 still with the same plans. Client continues to describe and show signs of a MDD diagnosis and would benefit from a psychiatric hospitalization. Plan/Disposition Recommended Disposition: Hospitalization facilities contacted. Plan: Client will remain at [facility] ED on voluntary status pending admission to an inpatient facility. Should client want to leave [facility] should be notified and an EE should be considered. Clients referrals have been faxed to [facility], [facility], [facility], and [facility]. Client will be re-assessed by [facility] daily until placement is secured or clients acuity level decreases and he is able to be safety planned back to the community. Person reported agreement to plan: Yes Facilities contacted if Applicable [facility] Not accepted, No bed available [facility] Not accepted, No bed available [facility] (send referral for review ) Other Reports/communication Outcome discussed with: ED/Personnel
--- NOTE | 2022-07-09 10:25 | PDOC.CMSAFED ---
- If Service Date Differs Date of service: 07/09/22 Time of Service: 10:25 Care Management Safety Plan Status: Voluntary - Reason for Wait Reason for Wait: Inpatient Admission VOLUNTARY FOR INPATIENT PSYCHIATRIC STABILIZATION. Patient is appropriate in all interactions since arriving at [facility]; Pt has demonstrated appropriate coping and communication skills, has articulated his needs and concerns and is fully engaged during staff interactions. Safety plan has been established with patient, and care team, to adhere to patient goals, identify restrictions based on behavioral status, address nutrition, and determine allowed personal belongings, tools for hygiene and personal care. Determine level of activity including ambulation, level of supervision, visitors, and determine privileges based on behaviors and level of engagement by pt. SAFETY PLAN: 1. Will remain on suicide precautions. In Paper Clothes 2. Will remain in room under direct supervision of one-on-one staff at all times provided by CPSO; PRIYANKA, PERENNIAL HOUSE MANAGER pin ticket machine operator. 3. May have paper cups, plates, finger foods as well as a cardboard spoon with which to eat meals. 4. Follow [facility] Management of the Admitted Behavioral Health Patient policy. 5. Comfort bath system only, shower permitted with escort at RN discretion. 6. No personal belongings-soft items permitted at RN discretion. 7. Visitors-none at this time. 8. Activities: soft cart items approved per RN discretion. 9. Bathroom privileges with escort in the ED, available in room without limitation on M/S. 10. Phone: contact limited to family at this time, via cordless phone at RN discretion. 11. Due to VOLUNTARY status, if patient wishes to leave [facility], staff will contact [facility] Crisis Screener ([phone]) and On-Call Garage Supervisor ([phone]) as soon as possible. In the event of elopement, notify [place] [employer] Police ([phone]). Patient is currently voluntarily at [facility] and seeking inpatient admission when a bed becomes available. [facility] Frontline E D Tech will continue seeking placement. Please contact the Flavoring Oil Filterer Garage Supervisor ([phone]) and [facility] E D Tech ([phone]) for any needed changes in the Safety Plan. Safety plan has been provided to interdepartmental care team.
--- NOTE | 2022-07-09 16:11 | W.EDPROG ---
Date of service: 07/09/22 Time of Service: 16:11 Medical Decision Making Care was signed out by Dr. Meza, please see his documentation regarding earlier ED course. Plan at signout was to await psychiatric treatment facility placement patient here voluntarily for SI and substance abuse. Patient stable this shift. Cooperative. Still awaiting placement. Sign Out Sign Out Data: Sign Out Comment: voluntary for depression/si Last updated by Chris Vasquez MD at 07/08/22 20:22 Sign Out Comment: Stable throughout the night, voluntary for depression and suicidal ideation, no interventions needed. Last updated by Mio Meza DO at 07/09/22 08:03 Discharge Plan Disposition Condition: Stable Discharge Details Chief Complaint: PsychEval Clinical Impression: Depression Primary Care Provider: Bar Garza ED Provider: Saud Joseph Home Meds and New Rx's Prescriptions: No Action sertraline [Zoloft] 50 mg tablet 50 mg PO DAILY
--- NOTE | 2022-07-09 17:39 | W.EDPROG ---
Date of service: 07/09/22 Time of Service: 17:39 Medical Decision Making patient remains voluntary for depression/si, no issues reported during the day, will continue to remain in the ED until bed placement found Sign Out Sign Out Data: Sign Out Comment: voluntary for depression/si Last updated by Chris Vasquez MD at 07/08/22 20:22 Sign Out Comment: Stable throughout the night, voluntary for depression and suicidal ideation, no interventions needed. Last updated by Mio Meza DO at 07/09/22 08:03 Sign Out Comment: Awaiting psychiatric placement. Stable. Last updated by Saud Joseph MD at 07/09/22 16:37 Discharge Plan Disposition Condition: Stable Discharge Details Chief Complaint: PsychEval Clinical Impression: Depression Primary Care Provider: Bar Garza ED Provider: Chris Vasquez Home Meds and New Rx's Prescriptions: No Action sertraline [Zoloft] 50 mg tablet 50 mg PO DAILY
[2022-07-09 22:26] VITALS: BP 122/70; PULSE 52; RESP 20; TEMP 36.8; O2SAT 94
[2022-07-10 05:51] LABS: Source Nasal/Nares
[2022-07-10 06:21] LABS: COVID-19 PCR Negative (Negative)
--- NOTE | 2022-07-10 08:03 | CMSP_ITS ---
- If Service Date Differs Date of service: 07/07/22 Time of Service: 11:00 Care Management Safety Plan Status: Voluntary - Reason for Wait Reason for Wait: Inpatient Admission VOLUNTARY FOR INPATIENT PSYCHIATRIC STABILIZATION. Per [facility] Crisis Screener: Client is a 37 year old, single, male who lives in [facility]. He is unemployed and has no natural supports per his report. Client presents laying in bed resting and reports that he got a decent amount of sleep last night for the first time in awhile. He is engaged and communicates his needs appropriately. He reported to ED staff that his subst ance abuse issues are pushing him to the point of acting on his SI. He has a reported history of attempts including an aborted one just a day or two ago when he was sitting on the railings of the [facility] [place] contemplating jumping. He self-reports his risk if he were to be discharged a 01/09 still with the same plans. Client continues to describe and show signs of a MDD diagnosis and would benefit from a psychiatric hospitalization. Patient is appropriate in all interactions since arriving at [facility]; Pt has demonstrated appropriate coping and communication skills, has articulated his needs and concerns and is fully engaged during staff interactions. Safety plan has been established with patient, and care team, to adhere to patient goals, identify restrictions based on behavioral status, address nutrition, and determine allowed personal belongings, tools for hygiene and personal care. Determine level of activity including ambulation, level of supervision, visitors, and determine privileges based on behaviors and level of engagement by pt. SAFETY PLAN: 1. Will remain on suicide precautions. In Paper Clothes 2. Will remain in room under direct supervision of one-on-one staff at all times provided by [employer]; PRIYANKA, CERTIFICATION OFFICER underwriter solicitation director. 3. May have paper cups, plates, finger foods as well as a cardboard spoon with which to eat meals. 4. Follow [facility] Management of the Admitted Behavioral Health Patient policy. 5. Comfort bath system only, shower permitted with escort at RN discretion. 6. No personal belongings-soft items permitted at RN discretion. 7. Visitors-none at this time. 8. Activities: soft cart items approved per RN discretion. 9. Bathroom privileges with escort in the ED, available in room without limitation on M/S. 10. Phone: contact limited to family at this time, via cordless phone at RN discretion. 11. Due to VOLUNTARY status, if patient wishes to leave [facility], staff will contact [facility] Crisis Screener ([phone]) and On-Call Lead Generator ([phone]) as soon as possible. In the event of elopement, notify [facility] Police ([phone]). Patient is currently voluntarily at [facility] and seeking inpatient admission when a bed becomes available. [facility] Frontline Expressive Art Therapist will continue seeking placement. Please contact the [employer] Lead Generator ([phone]) and [facility] Expressive Art Therapist ([phone]) for any needed changes in the Safety Plan. Safety plan has been provided to interdepartmental care team.
[2022-07-10 08:31] VITALS: BP 123/71; PULSE 65; RESP 17; TEMP 36.7; O2SAT 94
--- NOTE | 2022-07-10 11:37 | NUR.NOTE ---
Nursing Note: patient transfered to facility via EMS. Report given by previous RN. Belongings provided back to patient for transfer.
== END 2022-07-10 11:40 ==
PROVIDERS: Emergency Medicine; Student in an Organized Health Care Education/Training Program; Emergency Provider Emergency Medicine; PCP Nurse Practitioner Family
DX: F32.A Depression, unspecified (principal); R45.851 Suicidal ideations; Z20.822 Contact with and (suspected) exposure to COVID-19
CPT/HCPCS: 80053; 80307; 87635; 99285; 80320; 80329; 81003; 81015; 84443; 85025

== ENCOUNTER 2022-08-27 11:29 | Outpatient (CLI) | payer MEDICAID, SELFPAY ==
--- NOTE | 2022-08-27 11:02 | DI.RAD_ITS ---
Exam(s) XR PELVIS AP EXAM: XR PELVIS AP CLINICAL HISTORY: pre op L STACIA. TECHNIQUE: 2D digital imaging was performed. Standing AP view with template ball. COMPARISON: CR XR HIP RT COMPLETE AP PELVIS from 08/28/2021 CR XR HIP RT AP LAT ONLY from 06/21/2022 FINDINGS: BONES: Stable flattening of the right femoral head. Left femoral head appears intact. No bony destr uctive lesion is seen. JOINTS: No dislocation present. No joint space narrowing is present. SOFT TISSUE: Normal. IMPRESSION: Stable appearance of severe flattening of the femoral head consistent with avascular necrosis. DATA REPOSITORY: RADIATION DOSE DELIVERED:
== END 2022-08-27 11:30 | disposition home or self-care (01) ==
LOC: DIORS 11:29
PROVIDERS: PCP Nurse Practitioner Family; Visit Provider Physician Assistant
DX: M87.051 Idiopathic aseptic necrosis of right femur (principal)
CPT/HCPCS: 72170

== ENCOUNTER 2022-08-31 05:45 | Day surgery (SDC) | payer MEDICAID, SELFPAY ==
[2022-08-31] VITALS (15 sets, daily range): BP systolic 73–144; BP diastolic 37–85; PULSE 45–88; RESP 12–17; TEMP 36.2–36.6; O2SAT 95–100; BMI 28.1
--- NOTE | 2022-08-31 06:24 | W.ANESPRE ---
General Info Date of Service Date Performed: 08/31/22 Height: 5 ft 11 in Weight: 91.626 kg Body Mass Index (BMI): 28.1 Surgical Procedure: Operation Date: 08/31/22 07:50 Proposed Procedure Side Surgeon p Hip Total Hip Anterior Right Corey Rowan MD Meds Allergies and Home Medications Allergies Allergy/AdvReac Type Severity Reaction Status Date / Time No Known Allergies Allergy Verified 08/31/22 06:35 Home Medication Medication Instructions Recorded sertraline 50 mg tablet 50 mg PO DAILY #90 tabs 08/25/22 Current Visit Medications: Current Medications Generic Name Dose Route Start Last Admin Trade Name Freq PRN Reason Stop Dose Admin Acetaminophen 1,000 mg 08/31/22 06:00 Acetaminophen 500 Mg Tab PO 08/31/22 16:00 PREOP SYD Celecoxib 400 mg 08/31/22 06:00 Celecoxib 200 Mg Cap PO 08/31/22 16:00 PREOP SYD Tranexamic Acid 1,000 mg/ 60 mls @ 360 mls/hr 08/31/22 06:00 Sodium Chloride IV 08/31/22 16:00 PREOP SYD Ringer's Solution 1,000 mls @ 80 mls/hr 08/31/22 06:00 IV 09/29/22 23:59 INFUSION SYD Cefazolin Sodium/Dextrose 2 gm in 50 mls @ 100 mls/hr 08/31/22 06:00 Ancef Duplex IVPB 08/31/22 16:00 PREOP SYD IV Miscellaneous Supplies 1 each 08/31/22 06:00 Iv Access IV 09/29/22 23:59 DIRECTED SYD Sodium Chloride 0 ml 08/31/22 06:00 Normal Saline Flush 10 Ml Syr IV 09/29/22 23:59 PRN PRN Sodium Chloride 0 ml 08/31/22 06:00 Normal Saline 10 Ml Vial IJ 09/29/22 23:59 DIRECTED PRN Sterile Water 0 ml 08/31/22 06:00 Water,Injection,Sterile 10 Ml Vial IJ 09/29/22 23:59 DIRECTED PRN PFSH Active Problems Active Problems: Problem Status Onset Code Polysubstance use disorder F19.90 Depression with suicidal ideation F32.A, R45.851 Avascular necrosis of bone of right hip M87.051 Leg pain M79.606 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 Opioid type dependence, abuse F11.20 Cocaine use disorder, severe, dependence F14.20 Medical History Medical History Depression Tobacco Smoking/Tobacco Use Status: Former Tobacco Use Passive smoking exposure: No Second hand exposure: Yes Alcohol Alcohol Intake: former Substance Use Substance use: Daily Substance use type: marijuana, crack/cocaine and heroin Details: Clean for recreational drugs 1+month, not using marijuana as well Vital Signs and Lab Results Vital Signs Most Recent Vital Signs in EMR: Temp Pulse Resp BP Pulse Ox 36.6 C 76 16 130/85 96 08/31/22 06:10 08/31/22 06:10 08/31/22 06:10 08/31/22 06:10 08/31/22 06:10 Lab Results 08/31/22 06:45 08/31/22 06:45 Blood Type / Crossmatch: No Data to Display Complete Blood Count: No Data to Display Complete Metabolic Panel: No Data to Display Liver Function Panel: No Data to Display Coagulation Panel: No Data to Display Cardiac Panel: No Data to Display Arterial Blood Gas: No Data to Display Venous Blood Gas: No Data to Display Pancreas Panel: No Data to Display Thyroid Panel: No Data to Display Infectious Disease: No Data to Display Blood Cultures: No Data to Display Toxicology Panel: No Data to Display Imaging and Studies Imaging and Studies Study information below may be from another EMR and interpreted by another provider. Please see original notes in EMR for more complete details. EKG Summary: 10/21: sinus early repol Anesthesia Assessment and Plan Anesthesia History Personal History: No History of Anesthesia Complications Family History: No Family History of Anesthesia Complications Exercise Tolerance Exercise Tolerance: Metabolic Equivalents>4 Cardiac & Pulmonary Exam Cardiac Exam: Normal S1/S2 Heart Sounds Pulmonary Exam: Clear Bilateral Breath Sounds Implantable Cardiac Device Does patient have a Pacemaker or an ICD?: No Airway Exam Known Difficult Airway: No Mallampati Class: 2 Mouth Opening: Normal (> 3cm) Thyromental Distance: Greater than 3 cm Neck Range of Motion: Full ROM Neck Circumference: Normal Teeth Condition: Normal Dentition ASA Classification ASA Score: ASA 2 Emergency Case?: No NPO Status NPO Status: NPO Clears >2 hours, Solids >8 hours Anesthesia Plan Resuscitation Status: Full Code Anesthesia Technique: Spinal Anesthesia Airway Planned: Natural Airway Monitors Used: Standard Monitors Preoperative Comments:: 37 yo male for STACIA. Sig PMHx: depression, poly substance use, otherwise healthy. Has been off crack for ~ 1.5 months.
[2022-08-31] MEDS: Acetaminophen 500 MG TAB 1000 MG PO (06:38)
[2022-08-31] MEDS: Celecoxib 200 MG CAP 400 MG PO (06:38)
[2022-08-31 06:48] LABS: HCT 43.7 % (40.0-50.0); HGB 14.8 g/dL (13.5-17.5); MCH 30.2 pg (27.0-33.0); MCHC 33.9 % (32.0-36.0); MCV 89 fL (80-95); MPV 9.6 fL (8.0-11.0); Platelet Count 233 10^3/uL (130-400); RDW 13.1 % (11.8-14.1); RDW-SD 42.8 fL; WBC 5.26 10^3/uL (4.4-10.8)
[2022-08-31 07:00] LABS: Anion Gap 8.2 mmol/L (3-11); BUN 15 mg/dL (7-18); CO2 24.8 mmol/L (21.0-32.0); CREATININE 1.1 mg/dL (0.70-1.30); Calcium 9.2 mg/dL (8.5-10.1); Chloride 106 mmol/L (98-107); Estimated GFR 87.57 (mL/min/1.73m2); Glucose 100 mg/dL (74-106); Potassium 4.2 mmol/L (3.5-5.1); Sodium 139 mmol/L (136-145)
[2022-08-31] MEDS: Lactated Ringers 1,000 ML 80 ML IV (07:05)
--- NOTE | 2022-08-31 07:44 | W.PM.DSUDISC ---
Date of service: 08/31/22 Time of Service: 11:18 Discharge Plan Disposition Patient Disposition: Home Condition: Good Discharge Details Attending Provider: Corey Rowan Primary Care Provider: Bar Garza Home Meds and New Rx's Prescriptions: New acetaminophen 500 mg tablet 1,000 mg PO Q8H PRN (Reason: pain) Qty: 90 3RF aspirin 81 mg tablet,delayed release (DR/EC) 81 mg PO BID Qty: 60 0RF ibuprofen 600 mg tablet 600 mg PO TID PRN (Reason: pain) Qty: 90 3RF dexamethasone 4 mg tablet 4 mg PO DAILY Qty: 2 0RF Rx Instructions: Starting Post-Operative Day #1 (Day after surgery) tramadol 50 mg tablet 50 - 100 mg PO Q6H PRNQty: 10 0RF Continued sertraline 50 mg tablet 50 mg PO DAILY Qty: 90 3RF Discharge Instructions Additional Instructions: Total Hip Discharge Instructions Activity: The most important activity is to walk. You should try to take short walks a few times a day. You have no restrictions on movement or positioning, but do not try to force what you do. You will find some stiffness and weakness with hip flexion (lifting your knee). Do not try to strengthen this too early, continue to practice walking and stairs and this will come. - Outpatient physical therapy can be helpful to help return you to a normal gait and improve your flexibility and strength. This can start around 2 weeks. For some patients, it?s not necessary. Usually this is determined at the time of discharge or at the first post-operative visit. - You should wear the THONY hose on both legs for 2 weeks. Dressing: Keep the surgical dressing in place for at least one week. After the first week it may be removed and replace with light gauze and tape or nothing. It may get wet after 3 days but avoid soaking the dressing. If it gets wet, just lightly pat dry. It is important to always keep some gauze between skin folds, especially when you are sitting. Spend some time with the wound exposed when you are lying flat as the incision does wrinkle onto itself. Medications: - You should take Tylenol and an anti-inflammatory Ibuprofen as your primary pain control medications. - You have been prescribed a stronger pain medication Tramadol for breakthrough pain, take as needed as prescribed. - You have also been prescribed Decadron to help with post-operative nausea and pain. You will take this for two days starting tomorrow. - You will be taking Aspirin 81mg twice a day for DVT prevention unless instructed otherwise. - If you have constipation you should take Colace or Miralax (both [id number]). It takes most people 3-4 days to have a bowel movement. Follow-up: 2 weeks If you have any acute concerns or questions, please do not hesitate to contact the office at [phone]. You may contact Dr. Rowan with any questions after hours through the hospital at [phone] or on his cell phone at [phone]. Stand Alone Forms: Anesthesia Discharge Inst., Jose Luis.Nerve Block Instructions, Gilberto Jacques (DSU) Referrals: Corey Rowan MD [ [facility] STAFF PHYSICIAN] - 09/13/22 1:15 pm Equipment/Supplies: Walker Activity:: Activity as Tolerated Remove Dressings/Wound Care:: Do Not Remove Shower/Bathe:: 72 hours Diet:: As Tolerated Discharge Orders Discharge Orders: Discharge Order (Routine); Ordered 08/31/22 Ordered By: Corey Rowan
[2022-08-31] MEDS: ceFAZolin 2 GM/50 ML BAG IVPB (07:46)
--- NOTE | 2022-08-31 09:06 | DI.RAD_ITS ---
Exam(s) XR HIP RT IN OR EXAM: XR HIP RT IN OR CLINICAL HISTORY: right total hip. TECHNIQUE: 2D digital imaging was performed. COMPARISON: No exams were available for comparison FINDINGS: Fluoroscopy provided for right hip arthroplasty. Please see procedure report for details. Total fluoroscopy time 40 seconds. Radiation exposure index/cumulative dose: bobby Cardozo= 4.1541mGy IMPRESSION: As above. DATA REPOSITORY: RADIATION DOSE DELIVERED:
[2022-08-31] MEDS: ePHEDrine 50 MG/ML VIAL 25 MG IM (09:38)
[2022-08-31] MEDS: Normal Saline 10 ML VIAL IJ (10:13)
[2022-08-31] MEDS: HYDROmorphone 2 MG/ML SYR IVP ×2 (10:13→10:23)
--- NOTE | 2022-08-31 10:15 | W.ANESPOSTOP ---
Postoperative Evaluation Date, Time and Location Date Performed: 08/31/22 Time Performed: 09:54 Patient Location: PACU Vital Signs Most Recent Imported Vital Signs: Most Recent Vital Signs Temp Pulse Resp BP Pulse Ox 36.4 C L 58 L 14 94/47 L 100 08/31/22 10:05 08/31/22 10:05 08/31/22 10:05 08/31/22 10:08/31/22 10:05 Pain Score Most Recent Pain Score: Most Recent Pain Score Pain Level 4 08/31/22 10:05 Assessment Mental Status: Arousable with meaningful communication Airway and Respiratory Function: Patent airway with normal (patient baseline) respiratory exam Cardiovascular Function: Hemodynamically Stable and Other (received IM ephedrine with good effect. ) Hydration Status: Adequately Hydrated Nausea & Vomiting: No Nausea or Vomiting Pain: Pain is tolerable per patient Peripheral Nerve Block: Patient did not receive a nerve block
[2022-08-31] MEDS: traMADol 50 MG TAB PO (11:25)
--- NOTE | 2022-08-31 12:44 | IN_ITS ---
PT Notes Physical Therapy Day Surgery Initial Evaluation Date: 08/31/2022 Referring Doctor: Corey Rowan MD PT Orders: PT CONSULT: S/p Ortho surgery Precautions: WBAT on right LE with AD. 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 PMHX: Medical History? Depression Social History/Home Situation: Equipment Owned/DME: Lives with father in a private home with 4 steps to enter with rails on both sides. Recently completed rehabilitation for substance abuse and has been 1 month sober. Father is the primary caregiver. Subjective: Denies headache, chest pain, and lightheadedness throughout session. Reports 2/10 pain in the right hip at rest and with movement. ilex Ag over surgical incision. Objective General Observation: Mepilex Ag over surgical incision. TEDS to be legs. Father present throughout evalaution. Mental Status: Alert and oriented x 4 Pain: 2/10 pain in the R hip ROM: Right Lower Extremity: Hip flexion WFL. Hip abduction WFL. Knee flexion WFL. Ankle dorsiflexion WFL. Ankle plantarflexion WFL. Left Lower Extremity: Hip flexion WFL. Hip abduction WFL. Knee flexion WFL. Ankle dorsiflexion WFL. Ankle plantarflexion WFL. Strength: Right Lower Extremity: Hip flexors 4/5. Hip abductors 4/5. Knee flexors 5/5. Knee extensors 5/5. Ankle dorsiflexors 5/5. Ankle plantarflexors 5/5. Left Lower Extremity:Hip flexors 5/5. Hip abductors 5/5. Knee flexors 5/5. Knee extensors 5/5. Ankle dorsiflexors 5/5. Ankle plantarflexors 5/5. Sensation: Denies numbness from the waist down B LE -- symetrically intact sensation in B LE with light pressure Bed Mobility/Transfers: Supine to sit supervision Sit to stand contact-guard assist Stand to sit standby assist Bed to chair standby assist Gait: Tolerated level surface ambulation of 250 feet using front wheeled walker with step through gait pattern. Appears to have less coordination in the R LE despite maximal cueing -- hyperextending at the R hip at midstance and push off and minimally flexing knee from swing through heel strike however does not report instability in the R hip and knee. Balance: Static Sitting: Normal Dynamic Sitting: Normal Static Standing: Fair Dynamic Standing: Fair Special Tests: Mobility Limitations Standardized Measure [facility] AM-PAC 6 clicks Basic Mobility Inpatient Short Form: Raw Score: 21 CMS Score: 29% deficit Informed Consent/Education: Patient instructed in purpose of PT consult. Packet containing STACIA exercise protocol has been given to patient. Education and training on initial set of exercises that can be done at home have been completed with patient and patient's father with the following details from [employer]: Access Code: [email or web address] URL: [email or web address] Date: 08/31/2022 Prepared by: Melina Acevedo Exercises - Supine Gluteal Sets - 1 x daily - 7 x weekly - 1 sets - 10 reps - 5 hold - Supine Heel Slide - 1 x daily - 7 x weekly - 1 sets - 10 reps - 5 hold - Supine Ankle Pumps - 1 x daily - 7 x weekly - 1 sets - 10 reps - 5 hold - Seated March - 1 x daily - 7 x weekly - 1 sets - 10 reps - 5 hold - Seated Long Arc Quad - 1 x daily - 7 x weekly - 1 sets - 10 reps - 5 hold Assessment: Mild incoordination with the right limb advancement noted during ambulation assessment. Requires use of front wheeled walker for all mobility ADL performance in order to maximize independence and reduce fall risk. Nurse Briana aware and plans on notifying orthopod as soon as he becomes available. Patient presents with clinical signs and symptoms consistent with current/admitting diagnoses that have resulted to mobility limitations, gait instability, generalized weakness, and impairment of motor control as dem onstrated by the following impairment level findings: 1. Decreased strength to right hip major muscle groups 2. Impaired standing balance Impairments are contributing to the following functional limitations: 1. Inability to safely ambulate without assistive device 2. Increase completion time for mobility ADL performance 3. Increased fall risk Patient is assessed as a [id number] moderate complexity based on the following: History: 37-year-old male with impairment level findings, functional limitations, and past medical history as indicated above Examination: Demonstrable impairment in strength, balance, and mobility level with underlying impairments and functional limitations as documented above Presentation: Evolving Decision Makin moderate complexity Goals: N/A. PT evaluation and 1-2 treatment sessions only for functional mobility training using recommended AD and for HEP instruction. Plan of Care/Treatment Plan: N/A. PT evaluation and 1-2 treatment session only for functional mobility training using recommended AD and for HEP instruction. DISCHARGE RECOMMENDATIONS: Home when medically cleared by orthopedic surgeon. Recommend outpatient PT services in order to optimize functional mobility outcomes and facilitate return to independent community ambulation without an assistive device. TREATMENT CODE/TIME: 02108 x 20 minutes, 36842 x 14 minutes beginning at 12:45 PM Thank you for the opportunity to participate in the care of this patient. Melina Acevedo PT, DPT, CLT [facility] [place], [place]
--- NOTE | 2022-08-31 21:13 | W.PM.OP ---
Date of service: 08/31/22 Time of Service: 09:05 Operative Note Operative Note DATE OF PROCEDURE: 08/31/22 PRE-OP DIAGNOSIS: Right Hip Avascular Necrosis POST-OP DIAGNOSIS: same PROCEDURE: Right Anterior Total Hip Arthroplasty with Intraoperative Navigation SURGEON: Corey Rowan RN FAMILY PRACTICE: Rosamaria Joe ANESTHESIA TYPE: Spinal Refer to Anesthesia Record ESTIMATED BLOOD LOSS: 200 PATHOLOGY: none sent TOURNIQUET TIME: 0 COMPLICATIONS: None Patient was transported to: PACU Patient's condition: stable Implants: 1. Depuy [place] Acetabular Component, 56mm 2. Depuy Acetabular Liner, 23i85es 3. Depuy Actis Standard Collared Femoral Stem, Size 6 4. Depuy Altrx Ceramic Femoral Head, Size 36+5mm Indications: I have seen Aden in clinic for symptoms of hip pain from avascular necrosis, confirmed with radiographic findings. Aden has exhausted nonoperative methods and was having significant limitations in daily function and desired better function and less pain. I discussed the technical details of a hip replacement. I explained the risks of the procedure to include, but not limited to, bleeding, infection, pain, stiffness, fracture, damage to nerves and vessels, damage to muscles and tendons, loosening, instability, leg length inequality, need for repeat procedure, blood clot and cardiopulmonary demise. Despite these risks, Aden elected to proceed. Findings: There was significant signs of avascular necrosis of the femoral head where the entire cartilage cap of the femur was loose. The cartilage was not adherent and I could manually peel the cartilage from the underlying subchondral bone which was soft and deficient. Procedure Description: Aden was greeted in the preoperative holding area where the correct side was identified and marked. The consent was reviewed with the patient and signed. The history and physical was updated. All questions were answered. Aden was taken back to the operating room. A spinal anesthestic was then administered. The feet were wrapped with cast padding and Coban and then placed into the boot liners and then into the boots. Care was taken to protect the skin and make sure the heels were fully down and the boots were stable. The patient was then positioned onto the HANA table. Both legs were held in a neutral position. SCDs were applied. The patient was then slid down onto a peroneal post. Prophylactic antibiotics in the form of Cefazolin were administered. 1g of Tranxemic Acid was given intravenously within 30 minutes of incision. The right leg was then prepped with Chloraprep and draped in a standard fashion. A second prep with Chloraprep was performed prior to placement of a shower-curtain type drape with Iodine impregnated skin protection. A timeout to confirm correct identity, side and site, procedure, allergies, anesthesia, and medical concerns was performed. An obliquely oriented incision was made starting lateral to the ASIS and running distal over the Tensor Fascia Adriana (TFL) muscle belly toward the fibular head, approximately 10cm. The skin and soft tissue was dissected sharply, through Jessica?s fascia, and to the fascia of the TFL. With the fascia and superior border of the IT band identified, the fascia was incised with a new knife just above any perforators from the IT band. The TFL muscle belly was bluntly dissected away from the fascia and moved laterally. The fat between TFL and rectus was identified to ensure the dissection was not within the TFL. Blunt dissection created space between abductors and the capsule and retractor was placed over the lateral femoral neck. The fibers of the rectus femoris tendon were identified and these were freed from the anterior capsule. A second cobra retractor was placed around the medial femoral neck. The TFL was further retracted laterally to show the deep fascia. Careful dissection through this layer identified three main crossing vessels of the lateral femoral circumflex. These were cauterized in multiple locations and then cut without any noticeable bleeding. The TFL was further released bluntly from the deep fascia to expose anterior hip capsule and fat The Chin orthopaedic retractor was then placed beneath the TFL and against sartorius and medial soft tissues to protect and retract the soft tissues. A T-capsulotomy was then performed starting at the superior lateral acetabulum and moving distally to the intertrochanteric ridge. These capsular flaps were tagged with a No. 1 Ethibond and elevated from within. The capsular flaps were released to the shoulder of the lateral neck and to the lesser trochanter to give excellent visualization of the proximal femur. A neck osteotomy was performed using an oscillating saw based on preoperative templates. This cut started in the shoulder and of the lateral neck and exited medially. The saw was at all times directed medially to avoid injury to the greater trochanter. Gross traction was applied to the leg and the osteotomy opened. The femoral head was removed with a corkscrew, making sure to protect the TFL on its exit. Traction was released after head removal. The cartilage was visibly not adherent to the underlying subchondral bone. I was able to manually peel the cartilage from the femoral head. The underlying subchondral bone was soft and deficient. This was measured on the back table to determine the starting reamer size. Portions of the rectus obscuring visualization were minimally elevated off the superior acetabulum. An anterior retractor was placed over the anterior wall between capsule and labrum and attached to the Gripper retraction system. The femur was rotated to 90 degrees and medial capsule was fully released until the lesser trochanter was palpable and visible; the femur was returned to 30 degrees. A posterior retractor was placed similarly between capsule and labrum. This provided excellent visualization. The contents of the cotyloid fossa were removed with electrocautery and the labrum was removed with a knife. There was significant chondromalacia of the superior acetabulum. Acetabular reaming began with a 52mm reamer. This first reaming was directed anterior to posterior and medial to get down to the true floor. This was inspected and reamed until the true floor was reached. The anterior retractor was then released and entry and exit was provided by traction on the capsular flaps. I then reamed sequentially up to a 56mm reamer where good fit was obtained. The larger reamers were oriented based on anatomical reference of the anterior and lateral mishra to ensure proper abduction and anteversion. Positioning and size was confirmed with the fluoroscopy. A 56mm Depuy [place] acetabular component was selected. The acetabulum was reamed around the periphery with the selected acetabular size to prevent a rim fit. The deep tissues were irrigated. The acetabular component was then impacted in a position of about 40-45 degrees of abduction and 15-20 degrees of anteversion, using the patient?s anatomy as the ultimate landmark. Fluoroscopy was used to confirm this. There was excellent advertising display rotator of the acetabular component and the inserting handle was removed. The acetabular liner, Depuy [id number] polyethylene liner, was inserted and lined up with the tines of the acetabular component. There was no soft tissue interposition. The liner was then impacted into position and confirmed to be well-seated. A portion of the alcides-articular cocktail was then injected around the acetabulum into the capsule and periosteum. This cocktail consisted of 123mg of Ropivacaine, 0.25mg of Epinephrine, 0.04mg of Clonidine, and 15mg of Ketorolac, diluted to 50cc. The leg was rotated to 120 degrees. Any remaining medial capsule was released until the lesser trochanter was easily palpable. A retractor was placed medially. The lateral capsule was further released into the shoulder to allow access to the greater trochanter. A Stovall retractor was placed over the greater trochanter which allowed the trochanter to flip in front of the capsule for excellent exposure. The leg was brought down into maximal extension and 20 degrees of adduction while ensuring there was no impingement on the acetabulum. Any remnant capsule within the trochanter was released. Piriformis and obturator externis were identified and protected. There was excellent access to the proximal femur. The lateral neck remnant was removed with a rongeur. A blunt canal probe was used to identify the canal and trajectory for later broaching. A box osteotome initiated the broach course. A small curved rasp and a curved curette were used to work laterally. Broaching then began with a starter Actis broach. This was inserted manually around the trochanter and into the canal before mallet blows. The broach was seated to the neck cut level based on the neck cut and the preoperative template. Sequential broaching was continued with the CarZumerse pneumatic broaching device until a tight fit was obtained with good rotational control of the femur. A trial standard neck was inserted along with a +5 trial head. The leg was brought out of extension and adduction and then reduced with traction and internal rotation. The leg was stable anteriorly in a position of 30 degrees of extension and 90 degrees of external rotation. Fluoroscopy was used to ensure there was no fracture and the stem was seated well. Leg lengths were checked with an AP pelvis and pelvic reference points. [employer] navigation system was used to confirm appropriate positioning and leg length and offset. Once content with the desired offset and leg lengths, the leg was brought back into extension, external rotation and adduction. The periosteum and surrounding tissue was injected with remaining portion of the alcides-articular cocktail. The proximal femur was irrigated as well as the deep tissues. The [employer] standard collared stem, size 6, was then manually inserted into the proximal femur making sure to control rotation. It was then malleted into position with light blows, giving breaks to allow bone expansion and decrease risk of fracture. The selected Depuy Altrx Ceramic Head, size 36+5mm, was then placed onto the clean and dry trunnion and secured with impaction onto the tapered fit. The leg was brought back out of extension and adduction and reduced with traction and internal rotation. Stability was confirmed with no shuck at 90 degrees of external rotation and 30 degrees of extension. No impingement through range of motion arc. Final x-ray images were obtained with fluoroscopy to confirm adequate positioning and no intraoperative fracture. The deep tissues were thoroughly irrigated with Surgiphor, betadine solution. This was allowed to sit in the wound for 3 minutes before being thoroughly irrigated out with normal saline. The capsule was then reapproximated with the previously placed Ethibond sutures. The TFL fascia was finally closed with a No. 2 Stratafix, barbed suture. Deep tissues were then reapproximated with 0 Vicryl and a running 2-0 Vicryl. The skin was closed with a running 4-0 Monocryl in a subcuticular fashion. This was reinforced with skin glue. A Mepilex silver dressing was applied. At the end of the case, all counts were correct. Aden was transferred to the hospital bed without difficulty and suffering no apparent complication. Aden has a good prognosis. Physical therapy will start today and without restrictions, weight-bearing as tolerated. Aspirin 81mg BID will be used for DVT prophylaxis.
== END 2022-08-31 14:55 | disposition home or self-care (01) ==
PROVIDERS: PCP Nurse Practitioner Family; Visit Provider Student in an Organized Health Care Education/Training Program
PROC: (CPT 27130; principal; 2022-08-31 07:30)
DX: M87.051 Idiopathic aseptic necrosis of right femur (principal)
CPT/HCPCS: 27130; 20985; 36415; 80048; 85027; 97162; 97530; 73501; J0690; J1100; J1170; J2250; J2405; J2704

== ENCOUNTER 2022-09-13 14:09 | Outpatient (CLI) | payer MEDICAID, SELFPAY ==
--- NOTE | 2022-09-13 12:45 | DI.RAD_ITS ---
Exam(s) XR HIP RT COMPLETE AP PELVIS EXAM: XR HIP RT COMPLETE AP PELVIS INDICATION: 1ST POST OP STACIA. COMPARISON: CR XR PELVIS AP from 08/27/2022 XA XR HIP RT IN OR from 08/31/2022 TECHNIQUE: 2D digital imaging was performed. Two views. FINDINGS: There has been no change in the alignment of the right hip prosthesis. No surrounding bony lucencies are seen. The right hip joint space is maintained. IMPRESSION: No acute abnormality. DATA REPOSITORY: RADIATION DOSE DELIVERED:
== END 2022-09-13 14:10 | disposition home or self-care (01) ==
LOC: DIORS 14:09
PROVIDERS: PCP Nurse Practitioner Family; Referring Provider Nurse Practitioner Family; Visit Provider Student in an Organized Health Care Education/Training Program
DX: Z96.641 Presence of right artificial hip joint (principal); Z47.1 Aftercare following joint replacement surgery
CPT/HCPCS: 73502

== ENCOUNTER 2023-11-06 10:47 | Emergency (ER) | payer MEDICAID, SELFPAY ==
[2023-11-06 10:52] VITALS: BP 151/90; PULSE 95; RESP 18; TEMP 36.7; O2SAT 98
[2023-11-06 11:21] LABS: Abs Immature Grans 0.05 10^3/uL (0.0-0.06); Absolute Eosinophil Count 0.01 10^3/uL (0.0-0.7); Absolute Lymphocyte Count 0.83 10^3/uL (1.2-3.4); Absolute Monocyte Count 0.74 10^3/uL (0.1-0.8); Absolute Neutrophil Count 9.71 10^3/uL (1.2-6.7); Basophils % 0.4 %; Eosinophils % 0.1 %; HGB 15.5 g/dL (13.5-17.5); Immature Grans % 0.4 %; Lymphocytes % 7.3 %; MCH 29.8 pg (27.0-33.0); MCV 90 fL (80-95); Monocytes % 6.5 %; Neutrophils % 85.3 %; Platelet Count 268 10^3/uL (130-400); RBC 5.21 10^6/uL (4.36-5.78); RDW 13.2 % (11.8-14.1); RDW-SD 43.8 fL; WBC 11.38 10^3/uL (4.4-10.8)
[2023-11-06 11:22] LABS: Absolute Basophil Count 0.05 10^3/uL (0.0-0.2)
[2023-11-06] MEDS: Normal Saline 1,000 ML 1000 ML IV ×3 (11:22→13:39)
--- NOTE | 2023-11-06 11:50 | NUR.NOTE ---
Lul Espinoza, Father [phone] Nursing Note:
[2023-11-06 11:59] LABS: Salicylate < 2.8 mg/dL (<2.8)
[2023-11-06 12:00] LABS: ALT 45 U/L (16-63); AST 72 U/L (15-37); Albumin 4.9 g/dL (3.4-5.0); Alkaline Phosphatase 110 U/L (46-116); Anion Gap 14.2 mmol/L (3-11); BUN 36 mg/dL (7-18); Bilirubin, Total 1.33 mg/dL (0.2-1.0); CO2 21.8 mmol/L (21.0-32.0); CREATININE 1.5 mg/dL (0.70-1.30); Calcium 9.9 mg/dL (8.5-10.1); Chloride 100 mmol/L (98-107); Estimated GFR 59.98 (mL/min/1.73m2); Glucose 92 mg/dL (74-106); Potassium 3.9 mmol/L (3.5-5.1); Sodium 136 mmol/L (136-145); TSH (W/Ref FT4) 1.18 uIU/mL (0.36-3.74); Total Protein 8.6 g/dL (6.4-8.2)
[2023-11-06 12:01] LABS: Creatine Kinase 1257 U/L (39-308); ETHANOL BLOOD < 3.0 mg/dL (<10)
[2023-11-06 13:52] LABS: Bilirubin Small (Negative); Blood Small (Negative); Clarity Clear (Clear); Glucose Negative (Negative); Ketones 80 mg/dL (Negative); Leukocyte Esterase Negative (Negative); Nitrite Negative (Negative); Specific Gravity >= 1.030 (1.005-1.025); Urobilinogen 0.2 mg/dL (Up to 0.2); pH 5.5 (5-8)
[2023-11-06 14:01] LABS: Bacteria Negative HPF (Negative); C & S Indicated? No; Casts Negative LPF (Negative); Crystals Negative HPF (Negative); Epithelial Cells Rare HPF (Negative); Mucus Negative (Negative); WBC 0-2 HPF (0-5)
[2023-11-06 14:13] LABS: *AMPHETAMINES SCREEN URINE Negative (Negative); *BARBITURATES SCREEN URINE Negative (Negative); *BENZODIAZEPINES SCREEN URINE Negative (Negative); Cannabinoids THC Negative (Negative); Cocaine Screen,Urine Positive (Negative); METHADONE URINE SCREEN Negative (Negative); OPIATES URINE SCREEN Negative (Negative)
[2023-11-06 14:20] LABS: Tricyclic Antidepressants Negative (Negative)
[2023-11-06 14:50] LABS: Anion Gap 10.1 mmol/L (3-11); BUN 32 mg/dL (7-18); CO2 22.9 mmol/L (21.0-32.0); CREATININE 1.2 mg/dL (0.70-1.30); Calcium 7.6 mg/dL (8.5-10.1); Chloride 106 mmol/L (98-107); Glucose 112 mg/dL (74-106); Potassium 3.3 mmol/L (3.5-5.1); Sodium 139 mmol/L (136-145)
[2023-11-06 14:56] LABS: Creatine Kinase 852 U/L (39-308)
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
[2023-11-06] MEDS: Potassium Chloride 20 MEQ TABCR PO (15:57)
[2023-11-06] MEDS: Normal Saline 1,000 ML 150 ML IV (15:58)
[2023-11-06] MEDS: Calcium Carbonate 1.5 GM TAB PO (18:16)
--- NOTE | 2023-11-06 18:31 | W.EDPROG ---
Date of service: 11/06/23 Time of Service: 18:31 Medical Decision Making This dictation utilizes [id number] dictation software and may contain unedited grammatical errors. Patient seen in sign-out from Margarita Mckoy PA-C, please see her complete note. Essentially this 38 y/o M presents to ED today with a chief complaint of crack cocaine use - patient had been missing since Tuesday with PD searching for him- he had been hiding out in the gray smoking crack cocaine. Patient endorses SI by wanting to hang himself, ashamed of his relapse after years of sobriety. Patient has not eaten or had water since Tuesday- has rhabdomyolysis, and has received 3L of IVF, receiving 4th liter of IVF with 2nd repeat CK pending at sign-out. Patient is voluntary, but EE'able if he tries to leave. Patient can be cleared for Zone B with downtrending CK which is pending at 1830. Patients' medical history: Polysubstance use disorder, depression with suicidal ideation. Family and social history: Noncontributory. Differential / pathologies of concern include rhabdomyolysis. Diagnostic studies of: -CK - Initially 1250, trending down to 850, second repeat pending @1830. -rpt CK shows 500s, reasonable to move to Zone B, remove IV and continue PO hydration Interventions of: -none- continue PO hydration, MH voluntary- EE'able. Disposition of Rhabdomyolysis, Suicidal Ideation. Patient verbalized understanding of the plan and return to ED criteria and engaged in shared decision making. Medical Records Medical records reviewed: Yes I reviewed the patient's medical records. Lab Data Lab results reviewed: Yes I reviewed the patient's lab results. Quality:[facility] Health Related Social Needs: No Data to Display Sign Out Sign Out Data: Sign Out Comment: pending repeat cpk 1800 and voluntary placement for SI/polysubstance Last updated by Margarita Mckoy PA at 11/06/23 15:45 Sign Out Comment: Patient went missing for 3 days- was smoking crack cocaine in the gray without PO intake of food or H2O- was found, has rhabdo that is improved with 4L IVF, now transitioned to PO fluids. Patient made suicidal remarks, is voluntary for now, but EE'able if attempts to leave. Does not want family visitors due to shame of what happened. No acute events in ED. Last updated by Mio Hurtado PA at 11/06/23 20:45 Discharge Plan Discharge Details Chief Complaint: PsychEval Clinical Impression: Suicidal ideation, Rhabdomyolysis Primary Care Provider: Bar Garza ED Provider: Mio Hurtado Home Meds and New Rx's Prescriptions: No Action sertraline 50 mg tablet 50 mg PO DAILY Qty: 90 3RF acetaminophen 500 mg tablet 1,000 mg PO Q8H PRN (Reason: pain) Qty: 90 3RF ibuprofen 600 mg tablet 600 mg PO TID PRN (Reason: pain) Qty: 90 3RF
[2023-11-06 19:06] LABS: Creatine Kinase 567 U/L (39-308)
--- NOTE | 2023-11-06 19:11 | CMSP_ITS ---
Date of service: 11/06/23 Time of Service: 19:14 Care Management Safety Plan Status Status: Voluntary Reason for Wait Reason for Wait: Inpatient Admission Safety Plan Safety Plan: VOLUNTARY FOR INPATIENT PSYCHIATRIC STABILIZATION.? Patient is appropriate in all interactions since arriving at [facility]; Pt has demonstrated appropriate coping and communication skills, has articulated his or her needs and concerns and is fully engaged during staff interactions. Safety plan has been established with patient, and care team, to adhere to patient goals, identify restrictions based on behavioral status, address nutrition, and determine allowed personal belongings, tools for hygiene and personal care. Determine level of activity including ambulation, level of superv ision, visitors, and determine privileges based on behaviors and level of engagement by pt. VOLUNTARY SAFETY PLAN: 1. Will remain on suicide precautions, in paper clothes 2. Will remain in Zone B under direct supervision of one-on-one staff at all times provided by [employer]; PRIYANKA, ISOTOPE HYDROLOGIST funeral arrangement director. 3. May have paper cups, plates, finger foods as well as a cardboard spoon with which to eat meals. 4. Follow [facility] Management of the Admitted Behavioral Health Patient policy. 5. Shower available in Zone B without restriction. 6. Personal belongings-soft items permitted at RN discretion. 7. Visitors-none at this time. 8. Activities: soft cart items approved per RN discretion. 9.? Bathroom available in Zone B without restriction. 10. Phone: limited to [facility] cordless phone at RN discretion. Due to VOLUNTARY status, if patient wishes to leave [facility], staff will contact [facility] Crisis Screener ([phone]) and Lung Gun Operator ([phone]) as soon as possible. In the event of elopement, notify [employer] Police ([phone]). Patient is currently voluntarily at [facility] and seeking inpatient admission when a bed becomes available. [facility] Frontline Care Mgr will continue seeking placement. Please contact the Lung Gun Operator ([phone]) and [facility] Care Mgr ([phone]) for any needed changes in the Safety Plan. Safety plan has been provided to interdepartmental care team.
--- NOTE | 2023-11-06 19:11 | PDOC.CMSAFE ---
Date of service: 11/06/23 Time of Service: 19:14 Care Management Safety Plan Status Status: Voluntary Reason for Wait Reason for Wait: Inpatient Admission Safety Plan Safety Plan: VOLUNTARY FOR INPATIENT PSYCHIATRIC STABILIZATION.? Patient is appropriate in all interactions since arriving at [facility]; Pt has demonstrated appropriate coping and communication skills, has articulated his or her needs and concerns and is fully engaged during staff interactions. Safety plan has been established with patient, and care team, to adhere to patient goals, identify restrictions based on behavioral status, address nutrition, and determine allowed personal belongings, tools for hygiene and personal care. Determine level of activity including ambulation, level of supervision, visitors, and determine privileges based on behaviors and level of engagement by pt. VOLUNTARY SAFETY PLAN: 1. Will remain on suicide precautions, in paper clothes 2. Will remain in Zone B under direct supervision of one-on-one staff at all times provided by [employer]; PRIYANKA, DIRECTOR ERP sifter operator. 3. May have paper cups, plates, finger foods as well as a cardboard spoon with which to eat meals. 4. Follow [facility] Management of the Admitted Behavioral Health Patient policy. 5. Shower available in Zone B without restriction. 6. Personal belongings-soft items permitted at RN discretion. 7. Visitors-none at this time. 8. Activities: soft cart items approved per RN discretion. 9.? Bathroom available in Zone B without restriction. 10. Phone: limited to [facility] cordless phone at RN discretion. Due to VOLUNTARY status, if patient wishes to leave [facility], staff will contact [facility] Crisis Screener ([phone]) and Payroll Supervisor ([phone]) as soon as possible. In the event of elopement, notify [facility] Police ([phone]). Patient is currently voluntarily at [facility] and seeking inpatient admission when a bed becomes available. [facility] Frontline Quality Intern will continue seeking placement. Please contact the Payroll Supervisor ([phone]) and [facility] Quality Intern ([phone]) for any needed changes in the Safety Plan. Safety plan has been provided to interdepartmental care team.
--- NOTE | 2023-11-06 19:14 | CMPROGNOTE_ITS ---
Date of service: 11/06/23 Time of Service: 19:14 Care Management Progress Note Progress Note Text Progress Note Text: Aden presented to the ED after being found in the gray by family/friends. He has been missing since 11/04/23, and he reports using crack cocaine while in the gray after a long period of sobriety. He reported that he considered ending his life due to the shame/fear of reaction by family. He has a history of suicide attempts, and has been hospitalized twice. [facility] met with Adne this afternoon and stated that he is high risk for suicide at this time. Aden agreed to voluntary psychiatric treatment. [facility] will send referrals to all accepting facilities. He is in process of being medically cleared, pending repeat labs. He will move to zone B once a bed becomes available, and he is medically cleared. Safety plan in place. CM will continue to follow.
[2023-11-07] MEDS: Calcium Carbonate 1.5 GM TAB PO (08:40)
[2023-11-07 15:00] VITALS: BP 130/84; PULSE 64; RESP 18; TEMP 36.3; O2SAT 98
--- NOTE | 2023-11-07 15:32 | W.EDPROG ---
Date of service: 11/07/23 Time of Service: 15:32 Medical Decision Making Care was signed out by Dr. Allen, please see his documentation regarding earlier ED course. Plan at signout was to await for placement. Patient had been medically cleared prior to signout. Patient accepted by nurse practitioner Louis Newman at [facility]. Quality:[facility] Health Related Social Needs: No Data to Display Sign Out Sign Out Data: Sign Out Comment: pending repeat cpk 1800 and voluntary placement for SI/polysubstance Last updated by Margarita Mckoy PA at 11/06/23 15:45 Sign Out Comment: Patient went missing for 3 days- was smoking crack cocaine in the gray without PO intake of food or H2O- was found, has rhabdo that is improved with 4L IVF, now transitioned to PO fluids. Patient made suicidal remarks, is voluntary for now, but EE'able if attempts to leave. Does not want family visitors due to shame of what happened. No acute events in ED. Last updated by Mio Hurtado PA at 11/06/23 20:45 Sign Out Comment: Currently pending voluntary psych admission for SI/substance abuse. Contact mental health if any change in status, as he is felt to meet involuntary criteria. No issues/changes overnight. Last updated by Ant Allen MD at 11/07/23 07:01 Discharge Plan Disposition Patient Disposition: Home Condition: Stable Discharge Details Clinical Impression: Suicidal ideation Primary Care Provider: Bar Garza ED Provider: Saud Joseph Home Meds and New Rx's Prescriptions: No Action sertraline 50 mg tablet 50 mg PO DAILY Qty: 90 3RF acetaminophen 500 mg tablet 1,000 mg PO Q8H PRN (Reason: pain) Qty: 90 3RF ibuprofen 600 mg tablet 600 mg PO TID PRN (Reason: pain) Qty: 90 3RF Discharge Data Discharge Date/Time-TO BE ENTERED AT DEPARTURE: 11/07/23 15:42
--- NOTE | 2023-11-07 20:02 | CMPROGNOTE_ITS ---
Date of service: 11/07/23 Time of Service: 20:02 Care Management Progress Note Progress Note Text Progress Note Text: Aden was accepted at [facility] today. He was transported by Rene mckee, coordinated by STACIE GREGORIO. Per report, he had a conversation with his father prior to transport which went well. He was happy to be going to inpatient psychiatric treatment. Discharge Potential Discharge Needs: PCP F/U Appt Anticipated Barriers to Discharge: None Identified Patient/Family Education Needs: Review discharge instructions, discuss Ask Me Three Transportation: Other ()
== END 2023-11-07 15:42 | disposition home or self-care (01) ==
PROVIDERS: Physician Assistant; Emergency Provider Student in an Organized Health Care Education/Training Program; PCP Nurse Practitioner Family
DX: R45.851 Suicidal ideations (principal); F14.10 Cocaine abuse, uncomplicated; F32.A Depression, unspecified; F17.210 Nicotine dependence, cigarettes, uncomplicated
CPT/HCPCS: 00123; 80048; 80053; 80307; 82550; 96360; 96361; 99285; 80320; 80329; 81003; 81015; 84443; 85025

== ENCOUNTER 2024-02-03 11:48 | Emergency (ER) | payer MEDICAID, SELFPAY ==
[2024-02-03 11:53] VITALS: BP 124/80; PULSE 99; RESP 18; TEMP 37.2; O2SAT 99
--- OUTSIDE RECORDS SUMMARY | 2024-02-03 11:57 | XMS_ITS | Encounter Summary ---
Author Organization [facility] Address [address] [place] [address] Care Team Providers Care Commercial Cleaner Name Role Phone Unavailable Primary Care Provider Unavailabl e Encounter Details Date Type Department Care Team (Late st Contact Info) Description 08/21/2019 Lab Requisition [facility] Pathology & [place] [address] Radu Marks MD [address] [place] [id number] Encounter for other general examination Social History Tobacco Use Types Packs/Day Years Used Date Smoking Tobacco: Never Assessed Sex and Gender Information Value Date Recorded Sex Assigned at Not on file Gender Identity Not on file Sexual Orientation Not on file documented as of this encounter Plan of Treatment Not on file documented as of this encounter Procedures Procedure Name Priority Date/Time Associated Diagnosis Comments ZZCOVID-19 TEST [facility] PCR Today 08/21/2019 10:53 EDT Encounter for other general examination COVID-19 TESTING Today 08/21/2019 10:5 3 EDT Encounter for other general examination documented in this encounter Results * COVID-19 TEST [facility] PCR (08/21/2019 10:53 EDT) Swab ENTIRE NASOPHARYNX / Unknown Swab / Unknown 08/21/2019 10:53 EDT 08/21/2019 17:29 EDT Radu Marks MD MICROBIOLOGY - GENE RAL ORDERABLES [facility] [address] [place] [address] * COVID-19 TESTING (08/21/2019 10:53 EDT) COVID-19 rt-PCR Result Negative Negative 08/22/2019 19:31 EDT [facility] Comment:Negative results do not preclude 2019-nCoV infection and should not be used as the sole basis for treatment or other patient management decisions. Negative results must be combined with clinical observations, patient history, and epidemiological information. Performing Lab [facility] 08/22/2019 19:31 EDT [facility] Swab ENTIRE NASOPHARYNX / Unknown Swab / Unknown 08/21/2019 10:53 EDT 08/21/2019 17:29 EDT Radu Marks MD MICROBIOLOGY - GENE [facility] ORDERABLES [facility] [address] [place] [address] documented in this encounter Visit Diagnoses Diagnosis Encounter for other general examination documented in this encounter
--- OUTSIDE RECORDS SUMMARY | 2024-02-03 11:57 | XMS_ITS | Clinical Summary ---
Author Organization [facility] Address [address] [place] [id number] Care Team Providers Care Press Operator [employer] Products Name Role Phone Unavailable Primary Care Provider Unavailabl e Social History Tobacco Use Types Packs/Day Years Used Date Smoking Tobacco: Never Assessed Interpersonal Safety Answer Date Record ed Physically Hurt Never 03/25/2020 Verbally Threaten Not on file 03/25/2020 Sex and Gender Information Value Date Recorded Sex Assigned at Not on file Gender Identity Not on file Sexual Orientation Not on file Plan of Treatment Health Maintenance Due Date Last Done Comments Hepatitis C Screen 1985 Hepatitis B Vaccine (1 of 3 - 19+ 3-dose series) 06/10 COVID-19 Vaccine (2022- season) 2022
--- OUTSIDE RECORDS SUMMARY | 2024-02-03 11:57 | XMS_ITS | Referral Summary ---
Author Organization [facility] Address [address] [place] [address] Care Team Providers Care Streetcar Starter Name Role Phone Unavailable Primary Care Provider [...] Orientation Not on file Plan of Treatment Not on file
--- OUTSIDE RECORDS SUMMARY | 2024-02-03 11:57 | XMS_ITS | Encounter Summary ---
Author Organization [facility] Address [address] [place] [address] Care Team Providers Care Director Quality Systems Name Role Phone Unavailable Primary Care Provider Unavailabl e Encounter Details Date Type Department Care Team (Late st Contact Info) Description 02/25/2022 Lab Requisition [facility] Pathology & Laboratory Medicine - [address] [address] Outr Resulting Lab, Provider Social History Tobacco Use Types Packs/Day Years [...] Procedure Name Priority Date/Time Associated Diagnosis Comments CHLAMYDIA/N. GONORRHOEAE AMPLIFIED NUCLEIC ACID Routine 02/24/2022 21:37 EDT documented in this encounter Results * CHLAMYDIA/N. GONORRHOEAE AMPLIFIED RNA (02/24/2022 21:37 EDT) Neisseria gonorrhoeae Result Negative Negative 02/26/2022 15:58 EDT [facility] Chlamydia trachomatis Result Negative Negative 02/26/2022 15:58 EDT [facility] Urine URINE / Unknown 02/24/2022 2 1:37 EDT 02/25/2022 18:08 EDT Provider Outr Resulting Lab MICROBIOLOGY - GENERAL ORDERABLES [facility] [address] [place] [address] documented in this encounter Visit Diagnoses Not on filedocumented in this encounter
--- OUTSIDE RECORDS SUMMARY | 2024-02-03 11:57 | XMS_ITS | Encounter Summary ---
Author Organization [facility] Address [address] [place] [address] Care Team Providers Care Spray Applicator Name Role Phone Unavailable Primary Care Provider Unavailabl e Encounter Details Date Type Department Care Team (Late st Contact Info) Description 05/28/2022 Lab Requisition [facility] Pathology & Laboratory Medicine - [address] [address] Outr Resulting Lab, Provider Social History Tobacco [...] Procedure Name Priority Date/Time Associated Diagnosis Comments HIV 1/2 ANTIGEN AND ANTIBODY, 4TH GENERATION Routine 05/28/2022 11:36 EST documented in this encounter Results * HIV 1/2 ANTIGEN AND ANTIBODY, 4TH GENERATION (05/28/2022 11:36 EST) HIV 1 and 2 Antibody/p24 Antigen, 4th Generation Negative Negative 05/29/2022 9:20 EST [facility] Comment:If acute HIV-1 infec tion is suspected in a high risk patient, submit plasma specimen for HIV-1 RNA quantitation test. Blood VENOUS BLOOD / Unknown 05/28/2022 11:36 EST 05/28/2022 21:19 EST Narrative [facility] - 05/29/2022 9:20 EST Fourth Generation assay performed on the Siemens Centaur XPT. Provider Outr Resulting Lab IMMUNOLOGY A ND SEROLOGY ORDERABLES [facility] [address] [place] [address] documented in this encounter Visit Diagnoses Not on filedocumented in this encounter
--- NOTE | 2024-02-03 12:30 | DI.RAD_ITS ---
Exam(s) XR CHEST 2V PA LATERAL EXAM: XR CHEST 2V PA LATERAL CLINICAL HISTORY: cough TECHNIQUE: 2D digital imaging was performed. Two views. COMPARISON: CR,XR XR CHEST 2V PA LATERAL from 10/13/2021 FINDINGS: HEART: Normal size. Aorta: Not dilated. PULMONARY VASCULATURE: Normal. MEDIASTINUM: Unremarkable. LUNGS: Clear. PLEURAL SPACE: No pleural effusion or pneumothorax. BONE:Unremarkable for age. SOFT TISSUES: Unremarkable. IMPRESSION: No acute abnormality. DATA REPOSITORY: RADIATION DOSE DELIVERED:
[2024-02-03 12:33] VITALS: BP 124/80; PULSE 99; RESP 18; TEMP 37.2; O2SAT 99
[2024-02-03 12:34] VITALS: RESP 14
[2024-02-03 13:25] LABS: COVID-19 PCR Negative (Negative); Influenza A PCR Negative (Negative); Influenza B PCR Negative (Negative); RSV PCR Negative (Negative)
[2024-02-03 13:26] LABS: Source Nasopharynx
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
== END 2024-02-03 14:00 | disposition home or self-care (01) ==
PROVIDERS: Emergency Provider Emergency Medicine; PCP Nurse Practitioner Family
DX: J06.9 Acute upper respiratory infection, unspecified (principal)
CPT/HCPCS: 87637; 99283; 71046

== ENCOUNTER 2024-03-07 03:41 | Outpatient (CLI) | payer MEDICAID, SELFPAY ==
[2024-03-07 12:39] LABS: Calculated LDL 107 mg/dL (<100); Cholesterol 190 mg/dL (<200); HDL Cholesterol 76 mg/dL (40-60); Triglyceride 36 mg/dL (<150)
[2024-03-07 12:49] LABS: Hemoglobin A1C 5.5 % (<5.7)
== END 2024-03-07 03:42 | disposition home or self-care (01) ==
LOC: LOS 03:41
PROVIDERS: PCP Nurse Practitioner Family; Visit Provider Nurse Practitioner Family
DX: Z13.220 Encounter for screening for lipoid disorders (principal); Z13.1 Encounter for screening for diabetes mellitus
CPT/HCPCS: 36415; 80061; 83036